=== PATIENT | female | born 1950 | race Caucasian/White ===

== ENCOUNTER 2017-07-03 00:42 | Day surgery (SDC) | payer MEDICARE, OTHER ==
[~2017-07-03 00:42] MED LIST: ACET325UDC PO; AMLO5 PO; CALCA400CH PO; CALCA500CH PO; CEPH500 PO; CREON DR 24,001 EACH PO; CYAN1000 SL; DIPATR PO; DIPH50; DOCU100 PO; DRON400T; ERGO50000 PO; FENT25TP TOP; GABA250SO PO; HYDMOR2 PO; HYOSCYAMINE0.375 M1 PO; Hair, Skin & N1 EACH PO; IRBE150 PO; IRBHYD300 PO; LISHYD2025 PO; LISI20 PO; LOPE2C PO; METO25ER PO; MIRT15 PO; NEBI5 PO; NICO21TP; ONDA4 PO; ONDA8 PO; POTCHL10ER PO; PROM25 PO; SUCR1SU PO; TRIA80TC TOP
== END 2017-07-03 15:53 | disposition home or self-care (01) ==
LOC: ATC 00:42
DX: E86.0 Dehydration (principal); C16.1 Malignant neoplasm of fundus of stomach; I12.9 Hypertensive chronic kidney disease with stage 1 through stage 4 chronic kidney disease, or unspecified chronic kidney disease; N18.9 Chronic kidney disease, unspecified; F32.9 Major depressive disorder, single episode, unspecified; Z87.891 Personal history of nicotine dependence; R21 Rash and other nonspecific skin eruption
CPT/HCPCS: 96360; J1642; J7030

== ENCOUNTER 2017-08-07 12:59 | Day surgery (SDC) | payer MEDICARE, OTHER | END 2017-08-07 15:45 | disposition home or self-care (01) | LOC: ATC 12:59 | DX: E86.0 Dehydration (principal); I12.9 Hypertensive chronic kidney disease with stage 1 through stage 4 chronic kidney disease, or unspecified chronic kidney disease; N18.9 Chronic kidney disease, unspecified; C16.1 Malignant neoplasm of fundus of stomach; G25.81 Restless legs syndrome; K86.89 Other specified diseases of pancreas; C78.4 Secondary malignant neoplasm of small intestine; C78.5 Secondary malignant neoplasm of large intestine and rectum; C78.6 Secondary malignant neoplasm of retroperitoneum and peritoneum; Z90.49 Acquired absence of other specified parts of digestive tract; Z90.3 Acquired absence of stomach [part of]; Z87.891 Personal history of nicotine dependence; Z79.899 Other long term (current) drug therapy; Z90.710 Acquired absence of both cervix and uterus | CPT/HCPCS: 96360; J1642; J7030 ==

== ENCOUNTER 2017-08-17 15:21 | Day surgery (SDC) | payer MEDICARE, OTHER ==
[2017-08-17 17:05] LABS: Albumin, Blood 3.1 g/dL (3.4-5.0); Albumin/Globulin Ratio 0.8 (0.8-1.8); Bilirubin, Total 0.2 mg/dL (0.1-1.0); Bun/Creatinine Ratio 23.4 (12.0-20.0); Calcium, Blood 8.1 mg/dL (8.5-10.1); Creatinine, Blood 2.14 mg/dL (0.40-1.00); Globulin, Blood 3.8 g/dL (2.2-4.0); Potassium, Blood 4.3 mmol/L (3.5-5.5); Total Protein, Blood 6.9 g/dL (6.4-8.2)
== END 2017-08-17 16:47 | disposition home or self-care (01) ==
LOC: ATC 15:21
PROVIDERS: Internal Medicine Medical Oncology
DX: C16.1 Malignant neoplasm of fundus of stomach (principal); I12.9 Hypertensive chronic kidney disease with stage 1 through stage 4 chronic kidney disease, or unspecified chronic kidney disease; N18.9 Chronic kidney disease, unspecified; F32.9 Major depressive disorder, single episode, unspecified; Z87.891 Personal history of nicotine dependence; R21 Rash and other nonspecific skin eruption; E86.0 Dehydration
CPT/HCPCS: 80053; 96360; J1642; J7030

== ENCOUNTER 2017-12-11 16:10 | Emergency (ER) | payer MEDICARE, OTHER ==
[~2017-12-11] VITALS: Ht 157.5 cm; Wt 47.6 kg
[2017-12-11] MEDS ORDERED: Hydrochloroth12.5 MG PO (17:03)
[2017-12-11] MEDS ORDERED: Zestril40 MG (17:03)
[2017-12-11] MEDS ORDERED: DOXA2 PO (17:03)
[2017-12-11 17:06] LABS: BASOPHILS ABSOLUTE AUTO 0.02 K/mm3 (0.00-0.23); BASOPHILS PERCENT AUTO 0 % (0-2); EOSINOPHILS ABSOLUTE AUTO 0.04 K/mm3 (0.00-0.68); EOSINOPHILS PERCENT AUTO 1 % (0-6); Hematocrit 37.3 % (33.0-51.0); Hemoglobin 11.7 g/dL (11.5-16.0); IMMATURE GRAN ABSOLUTE AUTO 0.02 K/mm3 (0.00-0.10); IMMATURE GRAN PERCENT AUTO 0 % (0-1); LYMPHOCYTES ABSOLUTE AUTO 0.35 K/mm3 (0.84-5.20); LYMPHOCYTES PERCENT AUTO 6 % (21-46); MONOCYTES ABSOLUTE AUTO 0.34 K/mm3 (0.16-1.47); MONOCYTES PERCENT AUTO 6 % (4-13); Mean Corpuscular HGB 29.1 pg (26.0-34.0); Mean Corpuscular HGB Conc 31.4 g/dL (31.5-36.5); Mean Corpuscular Volume 93 fL (80-100); Mean Platelet Volume 10.3 fL (9.1-12.4); NEUTROPHILS ABSOLUTE AUTO 5.36 K/mm3 (1.96-9.15); NEUTROPHILS PERCENT AUTO 88 % (41-73); Platelet Count 291 K/mm3 (150-400); RDW Coefficient Variation 14.6 % (11.7-14.2); RDW Standard Deviation 49.2 fL (35.1-46.3); Red Blood Cell Count 4.02 M/mm3 (3.80-5.20); White Blood Cell Count 6.13 K/mm3 (4.00-11.30)
[2017-12-11 17:34] LABS: Alanine Aminotransfer (ALT/SGP 31 U/L (12-78); Albumin, Blood 3.2 g/dL (3.4-5.0); Albumin/Globulin Ratio 0.8 (0.8-1.8); Alk Phos 147 U/L (50-136); Anion Gap 8 mmol/L (6-16); Aspartate Aminotrans (AST/SGOT 24 U/L (12-37); Bilirubin, Total 0.3 mg/dL (0.1-1.0); Blood Urea Nitrogen 33 mg/dL (8-24); CO2, Blood 22 mmol/L (21-32); Calcium, Blood 8.8 mg/dL (8.5-10.1); Chloride, Blood 111 mmol/L (98-108); Creatinine, Blood 2.06 mg/dL (0.40-1.00); Globulin, Blood 3.8 g/dL (2.2-4.0); Glomerular Filtration Rate 25 (60-); Glucose, Blood 117 mg/dL (70-99); Potassium, Blood 4.1 mmol/L (3.5-5.5); Sodium, Blood 141 mmol/L (136-145); Troponin I <0.015 ng/mL (0.000-0.040)
[2017-12-11 19:34] LABS: Bilirubin, Urine Neg (Neg); Blood, Urine 1+ (Neg); Glucose Qualitative, Urine Neg (Neg); Ketones, Urine Neg (Neg); Leukocyte Esterase, Urine 1+ (Neg); Nitrite, Urine Neg (Neg); Protein, Urine 1+ (Neg); Specific Gravity, Urine 1.015 (1.003-1.022); Urobilinogen, Urine NORM (Normal)
[2017-12-11 19:43] LABS: Appearance, Urine Clear (Clear); Color, Urine Yellow (P-Yellow)
[2017-12-11 19:45] LABS: Bacteria Mod /hpf; Squamous Epithelial Cells Mod /hpf (Few)
== END 2017-12-11 20:44 | disposition home or self-care (01) ==
LOC: ER 16:10
PROVIDERS: Emergency Medicine
DX: I12.9 Hypertensive chronic kidney disease with stage 1 through stage 4 chronic kidney disease, or unspecified chronic kidney disease (principal); N18.3 Chronic kidney disease, stage 3 (moderate); R55 Syncope and collapse; Z88.1 Allergy status to other antibiotic agents; Z88.8 Allergy status to other drugs, medicaments and biological substances; Z91.048 Other nonmedicinal substance allergy status; Z79.899 Other long term (current) drug therapy; F32.9 Major depressive disorder, single episode, unspecified; Z87.891 Personal history of nicotine dependence
CPT/HCPCS: 70450; 71046; 80053; 81001; 84484; 85025; 87077; 87086; 87186; 93005; 93010; J7120

== ENCOUNTER 2019-01-26 15:26 | Emergency (ER) | payer MEDICARE, OTHER ==
[~2019-01-26] VITALS: Ht 157.5 cm; Wt 48.1 kg
[~2019-01-26 15:26] MED LIST changes: +DOXA2 PO; +Hydrochloroth12.5 MG PO; +Zestril40 MG
[2019-01-26] MEDS ORDERED: OSCIMIN SR0.375 MG PO (16:05)
[2019-01-26] MEDS ORDERED: AMLO5 PO (16:05)
[2019-01-26] MEDS ORDERED: MIRT15 PO (16:05)
[2019-01-26] MEDS ORDERED: CREON DR 24,001 EACH PO (16:05)
[2019-01-26] MEDS ORDERED: DIPATRL PO (16:06)
[2019-01-26] MEDS ORDERED: METO25ER PO (16:07)
[2019-01-26 16:50] LABS: BASOPHILS ABSOLUTE AUTO 0.04 K/mm3 (0.00-0.23); BASOPHILS PERCENT AUTO 1 % (0-2); EOSINOPHILS ABSOLUTE AUTO 0.36 K/mm3 (0.00-0.68); EOSINOPHILS PERCENT AUTO 7 % (0-6); Hematocrit 36.3 % (33.0-51.0); Hemoglobin 11.6 g/dL (11.5-16.0); IMMATURE GRAN ABSOLUTE AUTO 0.01 K/mm3 (0.00-0.10); IMMATURE GRAN PERCENT AUTO 0 % (0-1); LYMPHOCYTES ABSOLUTE AUTO 0.64 K/mm3 (0.84-5.20); LYMPHOCYTES PERCENT AUTO 12 % (21-46); MONOCYTES ABSOLUTE AUTO 0.55 K/mm3 (0.16-1.47); MONOCYTES PERCENT AUTO 10 % (4-13); Mean Corpuscular HGB 30.4 pg (26.0-34.0); Mean Corpuscular Volume 95 fL (80-100); Mean Platelet Volume 10.4 fL (9.1-12.4); NEUTROPHILS ABSOLUTE AUTO 3.84 K/mm3 (1.96-9.15); NEUTROPHILS PERCENT AUTO 71 % (41-73); Platelet Count 216 K/mm3 (150-400); RDW Coefficient Variation 12.9 % (11.7-14.2); RDW Standard Deviation 45.4 fL (35.1-46.3); Red Blood Cell Count 3.81 M/mm3 (3.80-5.20); White Blood Cell Count 5.44 K/mm3 (4.00-11.30)
[2019-01-26 17:11] LABS: Alanine Aminotransfer (ALT/SGP 30 U/L (12-78); Albumin, Blood 2.9 g/dL (3.4-5.0); Albumin/Globulin Ratio 0.8 (0.8-1.8); Alk Phos 141 U/L (50-136); Anion Gap 6 mmol/L (6-16); Aspartate Aminotrans (AST/SGOT 29 U/L (12-37); Bilirubin, Total 0.4 mg/dL (0.1-1.0); Blood Urea Nitrogen 34 mg/dL (8-24); Bun/Creatinine Ratio 22.5 (12.0-20.0); CO2, Blood 24 mmol/L (21-32); Calcium, Blood 8.5 mg/dL (8.5-10.1); Chloride, Blood 109 mmol/L (98-108); Creatinine, Blood 1.51 mg/dL (0.40-1.00); Globulin, Blood 3.6 g/dL (2.2-4.0); Glomerular Filtration Rate 36 (60-); Glucose, Blood 104 mg/dL (70-99); Potassium, Blood 3.8 mmol/L (3.5-5.5); Sodium, Blood 139 mmol/L (136-145); Total Protein, Blood 6.5 g/dL (6.4-8.2); Troponin I <0.015 ng/mL (0.000-0.040)
[2019-01-26] MEDS ORDERED: Macrobid 100 M100 MG PO (19:23)
[2019-01-26 19:35] LABS: Source, Urine Clean Catch
[2019-01-26 19:38] LABS: Bilirubin, Urine Neg (Neg); Blood, Urine Neg (Neg); Glucose Qualitative, Urine Neg (Neg); Ketones, Urine Neg (Neg); Leukocyte Esterase, Urine 1+ (Neg); Nitrite, Urine Neg (Neg); Protein, Urine 1+ (Neg); Urobilinogen, Urine NORM (Normal)
[2019-01-26 19:59] LABS: Appearance, Urine Clear (Clear); Color, Urine Yellow (P-Yellow); Red Blood Cells, Urine 0-2 /hpf (0-2)
[2019-01-26 20:00] LABS: Bacteria Many /hpf; Granular Casts 0-2 /lpf (0); Mucus Light (0-Heavy); Squamous Epithelial Cells Few /hpf (Few)
[2019-02-08] MEDS ORDERED: DOXA2 PO (14:54)
[2019-02-14] MEDS ORDERED: ACET325 PO (13:07)
[2019-02-14] MEDS ORDERED: CLINDAMYCIN TOP (13:08)
[2019-02-14] MEDS ORDERED: CEFU250T47 PO (13:10)
[2019-02-22] MEDS ORDERED: CEFU250T47 PO (08:32)
[2019-02-22] MEDS ORDERED: ONDA4 PO (08:35)
== END 2019-01-26 19:50 | disposition home or self-care (01) ==
LOC: ER 15:26
PROVIDERS: Physician Assistant
DX: N39.0 Urinary tract infection, site not specified (principal); R55 Syncope and collapse; E86.0 Dehydration; Z88.1 Allergy status to other antibiotic agents; Z88.8 Allergy status to other drugs, medicaments and biological substances; Z79.899 Other long term (current) drug therapy; C16.9 Malignant neoplasm of stomach, unspecified; Z91.048 Other nonmedicinal substance allergy status; Z87.891 Personal history of nicotine dependence
CPT/HCPCS: 36415; 70450; 80053; 81001; 83880; 84484; 85025; 87086; 93005; 93010; 96361; 96374; 99284-25; J1642; J2405; J7030

== ENCOUNTER 2019-02-07 22:20 | Inpatient (IN) | payer MEDICARE, OTHER ==
[~2019-02-07] VITALS: Ht 157.5 cm; Wt 47.4 kg
[~2019-02-07 22:20] MED LIST changes: +DIPATRL PO; +Macrobid 100 M100 MG PO; +OSCIMIN SR0.375 MG PO
[2019-02-07 23:00] LABS: BASOPHILS ABSOLUTE AUTO 0.03 K/mm3 (0.00-0.23); BASOPHILS PERCENT AUTO 1 % (0-2); EOSINOPHILS ABSOLUTE AUTO 0.68 K/mm3 (0.00-0.68); EOSINOPHILS PERCENT AUTO 11 % (0-6); Hemoglobin 11.3 g/dL (11.5-16.0); IMMATURE GRAN ABSOLUTE AUTO 0.02 K/mm3 (0.00-0.10); IMMATURE GRAN PERCENT AUTO 0 % (0-1); LYMPHOCYTES ABSOLUTE AUTO 0.83 K/mm3 (0.84-5.20); LYMPHOCYTES PERCENT AUTO 13 % (21-46); MONOCYTES ABSOLUTE AUTO 0.56 K/mm3 (0.16-1.47); MONOCYTES PERCENT AUTO 9 % (4-13); Mean Corpuscular HGB 29.6 pg (26.0-34.0); Mean Corpuscular HGB Conc 31.4 g/dL (31.5-36.5); Mean Corpuscular Volume 94 fL (80-100); Mean Platelet Volume 9.9 fL (9.1-12.4); NEUTROPHILS ABSOLUTE AUTO 4.32 K/mm3 (1.96-9.15); NEUTROPHILS PERCENT AUTO 67 % (41-73); Platelet Count 270 K/mm3 (150-400); RDW Coefficient Variation 12.4 % (11.7-14.2); RDW Standard Deviation 43.2 fL (35.1-46.3); Red Blood Cell Count 3.82 M/mm3 (3.80-5.20); White Blood Cell Count 6.44 K/mm3 (4.00-11.30)
[2019-02-07 23:19] LABS: Albumin, Blood 2.5 g/dL (3.4-5.0); Albumin/Globulin Ratio 0.7 (0.8-1.8); Bilirubin, Total 0.2 mg/dL (0.1-1.0); Bun/Creatinine Ratio 13.5 (12.0-20.0); Calcium, Blood 8.8 mg/dL (8.5-10.1); Creatinine, Blood 1.78 mg/dL (0.40-1.00); Globulin, Blood 3.6 g/dL (2.2-4.0); Potassium, Blood 4.4 mmol/L (3.5-5.5); Total Protein, Blood 6.1 g/dL (6.4-8.2)
[2019-02-08 01:30] LABS: Magnesium, Blood 1.8 mg/dL (1.6-2.4); Troponin I <0.015 ng/mL (0.000-0.040)
[2019-02-08 03:01] LABS: Source, Urine Clean Catch
[2019-02-08 03:03] LABS: Bilirubin, Urine Neg (Neg); Blood, Urine Neg (Neg); Glucose Qualitative, Urine Neg (Neg); Ketones, Urine Neg (Neg); Leukocyte Esterase, Urine 1+ (Neg); Nitrite, Urine Neg (Neg); Protein, Urine 1+ (Neg); Urobilinogen, Urine NORM (Normal)
[2019-02-08 03:04] LABS: Appearance, Urine Clear (Clear); Color, Urine Yellow (P-Yellow)
[2019-02-08 03:09] LABS: Bacteria Mod /hpf; Hyaline Casts 0-2 /lpf (0-2); Red Blood Cells, Urine 0-2 /hpf (0-2); Squamous Epithelial Cells Not Seen /hpf (Few)
[2019-02-08] MEDS ORDERED: CREON DR 24,001 EACH PO (14:53)
[2019-02-08] MEDS ORDERED: DOXA2 PO ×2 (14:54)
--- NOTE | 2019-02-08 18:23 | NUR ---
PATIENT ADMITTED FOR SYCOPE THIS SHIFT. PATIENT HAS HAD ISSUES WITH SWALLOWING SO EVAL ORDERED. SHE IS WEAK AND REQUIRES 2 ASSIST TO BSC. SHE HAD SMALL (UNDER 30 MLS) OF EMESIS OUT WHEN SHE FIRST ARRIVED TO THE UNIT. HAS TAKEN IN SMALL SCAR OF ICE CHIPS AND ONE ICECREAM CUP FOR DINNER. FAMILY HAS BEEN PRESENT AND ASSISTS WITH CARES NEEDED. PATIENT HAS SLEPT MOST OF THE TIME SINCE SHE ARRIVED. DUE TO HER WEAKNESS AND SYCOPAL EPISODES THIS NURSE ASKED PT TO TRY AGAIN TOMORROW.
--- NOTE | 2019-02-09 04:04 | NUR ---
Shift summary: Pt still feeling very weak when up and needing one person assist. Family at bedside. Pt on telemetry- Pt in NSr with 1st degree block and Bundle branch block per pcu tech.
[2019-02-09 04:59] LABS: BASOPHILS ABSOLUTE AUTO 0.03 K/mm3 (0.00-0.23); BASOPHILS PERCENT AUTO 1 % (0-2); EOSINOPHILS ABSOLUTE AUTO 0.67 K/mm3 (0.00-0.68); EOSINOPHILS PERCENT AUTO 10 % (0-6); Hematocrit 34.9 % (33.0-51.0); Hemoglobin 10.7 g/dL (11.5-16.0); IMMATURE GRAN ABSOLUTE AUTO 0.01 K/mm3 (0.00-0.10); IMMATURE GRAN PERCENT AUTO 0 % (0-1); LYMPHOCYTES ABSOLUTE AUTO 0.82 K/mm3 (0.84-5.20); LYMPHOCYTES PERCENT AUTO 12 % (21-46); MONOCYTES ABSOLUTE AUTO 0.49 K/mm3 (0.16-1.47); MONOCYTES PERCENT AUTO 7 % (4-13); Mean Corpuscular HGB 28.8 pg (26.0-34.0); Mean Corpuscular HGB Conc 30.7 g/dL (31.5-36.5); Mean Corpuscular Volume 94 fL (80-100); Mean Platelet Volume 10.2 fL (9.1-12.4); NEUTROPHILS ABSOLUTE AUTO 4.57 K/mm3 (1.96-9.15); NEUTROPHILS PERCENT AUTO 69 % (41-73); Platelet Count 262 K/mm3 (150-400); RDW Coefficient Variation 12.5 % (11.7-14.2); RDW Standard Deviation 43.5 fL (35.1-46.3); Red Blood Cell Count 3.71 M/mm3 (3.80-5.20); White Blood Cell Count 6.59 K/mm3 (4.00-11.30)
[2019-02-09 05:18] LABS: Albumin, Blood 2.3 g/dL (3.4-5.0); Albumin/Globulin Ratio 0.7 (0.8-1.8); Bilirubin, Total 0.3 mg/dL (0.1-1.0); Bun/Creatinine Ratio 13.2 (12.0-20.0); Calcium, Blood 8.3 mg/dL (8.5-10.1); Creatinine, Blood 1.29 mg/dL (0.40-1.00); Globulin, Blood 3.3 g/dL (2.2-4.0); Potassium, Blood 3.9 mmol/L (3.5-5.5); Total Protein, Blood 5.6 g/dL (6.4-8.2)
--- NOTE | 2019-02-09 17:12 | NUR ---
SUMMARY PT RESTING QUIETLY IN BED, FAMILY IS AT THE BEDSIDE, PT HAS BEEN MED PER EMAR FOR NAUSEA, PT IS PLEASANT AND COOPERATIVE WITH CARE, VERY POOR APPETITE, PT HAS WORKED WITH PT/OT/ST, DIETARY HAS SEEN THE PT WELL, WAITING FOR MRI THIS EVENING, WILL START CPN AND FLUIDS WHEN SHE RETURNS, VSS, NO ACUTE CHANGES, WILL CONT TO MONITOR
[2019-02-10 04:35] LABS: BASOPHILS ABSOLUTE AUTO 0.02 K/mm3 (0.00-0.23); BASOPHILS PERCENT AUTO 0 % (0-2); EOSINOPHILS ABSOLUTE AUTO 0.57 K/mm3 (0.00-0.68); EOSINOPHILS PERCENT AUTO 9 % (0-6); Hematocrit 33.1 % (33.0-51.0); Hemoglobin 10.5 g/dL (11.5-16.0); IMMATURE GRAN ABSOLUTE AUTO 0.01 K/mm3 (0.00-0.10); IMMATURE GRAN PERCENT AUTO 0 % (0-1); LYMPHOCYTES ABSOLUTE AUTO 0.74 K/mm3 (0.84-5.20); LYMPHOCYTES PERCENT AUTO 12 % (21-46); MONOCYTES ABSOLUTE AUTO 0.51 K/mm3 (0.16-1.47); MONOCYTES PERCENT AUTO 8 % (4-13); Mean Corpuscular HGB 29.7 pg (26.0-34.0); Mean Corpuscular HGB Conc 31.7 g/dL (31.5-36.5); Mean Corpuscular Volume 94 fL (80-100); NEUTROPHILS ABSOLUTE AUTO 4.39 K/mm3 (1.96-9.15); NEUTROPHILS PERCENT AUTO 70 % (41-73); Platelet Count 259 K/mm3 (150-400); RDW Coefficient Variation 12.3 % (11.7-14.2); RDW Standard Deviation 42.5 fL (35.1-46.3); Red Blood Cell Count 3.54 M/mm3 (3.80-5.20); White Blood Cell Count 6.24 K/mm3 (4.00-11.30)
[2019-02-10 04:53] LABS: Alanine Aminotransfer (ALT/SGP 12 U/L (12-78); Albumin, Blood 2.3 g/dL (3.4-5.0); Albumin/Globulin Ratio 0.7 (0.8-1.8); Alk Phos 106 U/L (50-136); Anion Gap 6 mmol/L (6-16); Aspartate Aminotrans (AST/SGOT 12 U/L (12-37); Bilirubin, Total 0.2 mg/dL (0.1-1.0); Blood Urea Nitrogen 21 mg/dL (8-24); Bun/Creatinine Ratio 17.6 (12.0-20.0); CO2, Blood 27 mmol/L (21-32); Calcium, Blood 8.3 mg/dL (8.5-10.1); Chloride, Blood 106 mmol/L (98-108); Creatinine, Blood 1.19 mg/dL (0.40-1.00); Globulin, Blood 3.4 g/dL (2.2-4.0); Glomerular Filtration Rate 48 (60-); Glucose, Blood 103 mg/dL (70-99); Magnesium, Blood 1.8 mg/dL (1.6-2.4); Phosphorus, Blood 4.4 mg/dL (2.5-4.9); Potassium, Blood 4.1 mmol/L (3.5-5.5); Sodium, Blood 139 mmol/L (136-145); Total Protein, Blood 5.7 g/dL (6.4-8.2); Triglycerides 186 mg/dL (30-160)
--- NOTE | 2019-02-10 05:50 | NUR ---
Shift summary: Pt has no appetite and gets nauseated every time she gets to go to bathroom. Tpn running at 55. Pt up to br x 4 times during night only requiring minimal assist. Zofran given x 2 for nausea during shift. Blood drawn from mediport this am.
--- NOTE | 2019-02-10 11:46 | NUR ---
Initial Visit: Pt with gastric adenocarcinoma. She is nauseated, painful, anxious. She has TPN running into mediport. She reports 7/10 pain. She does not have an appetite. Reviewed medications with pt and her daughter, Elvis at bedside. Plan made to stagger pain medications and nausea medications for better coverage of symptoms. Tramadol q 6 hours and roxicodone q 4. Pt and daughter are accepting of symptom plan for more comfort. These symptoms are her biggest complaint. Elvis reports that pt hasn't eaten anything, mouth is painful and eating sometimes makes her nausea worse. Spoke with Mejia, nurse. Reviewed plan for treatment of symptoms. Mejia reports that pt has not been reporting pain to her. Will recheck symptoms later in the day.
--- NOTE | 2019-02-10 17:48 | NUR ---
SUMMARY PT CURRENTLY GETTING A CT OF THE ABD, PT HAS SLEPT OFF AND ON T/O THE DAY, PT WORKED WITH PT/OT, FAMILY HAS BEEN IN THE ROOM OFF AND ON T/O THE DAY, PT MED FOR PAIN AND NAUSEA PER EMAR SEVERAL TIMES, PT STILL WITH A POOR APPETITE, VSS, NO ACUTE CHANGES, WILL CONT TO MONITOR
[2019-02-11 04:55] LABS: BASOPHILS ABSOLUTE AUTO 0.02 K/mm3 (0.00-0.23); BASOPHILS PERCENT AUTO 0 % (0-2); EOSINOPHILS ABSOLUTE AUTO 0.51 K/mm3 (0.00-0.68); EOSINOPHILS PERCENT AUTO 7 % (0-6); Hematocrit 33.1 % (33.0-51.0); Hemoglobin 10.7 g/dL (11.5-16.0); IMMATURE GRAN ABSOLUTE AUTO 0.01 K/mm3 (0.00-0.10); IMMATURE GRAN PERCENT AUTO 0 % (0-1); LYMPHOCYTES PERCENT AUTO 10 % (21-46); MONOCYTES ABSOLUTE AUTO 0.46 K/mm3 (0.16-1.47); MONOCYTES PERCENT AUTO 6 % (4-13); Mean Corpuscular HGB 28.8 pg (26.0-34.0); Mean Corpuscular HGB Conc 32.3 g/dL (31.5-36.5); Mean Platelet Volume 10.5 fL (9.1-12.4); NEUTROPHILS ABSOLUTE AUTO 5.56 K/mm3 (1.96-9.15); NEUTROPHILS PERCENT AUTO 77 % (41-73); Platelet Count 271 K/mm3 (150-400); RDW Coefficient Variation 12.1 % (11.7-14.2); RDW Standard Deviation 39.5 fL (35.1-46.3); Red Blood Cell Count 3.71 M/mm3 (3.80-5.20); White Blood Cell Count 7.26 K/mm3 (4.00-11.30)
--- NOTE | 2019-02-11 04:56 | NUR ---
Shift summary. Pt up to bathroom every 1-2 hour during night requiring one person assist. Pt recieving tpn without problems. Pt get nauseated whenever she gets up- zofran given x 2 last pm.
[2019-02-11 05:01] LABS: Mean Corpuscular Volume 89 fL (80-100)
[2019-02-11 05:14] LABS: Albumin, Blood 2.4 g/dL (3.4-5.0); Albumin/Globulin Ratio 0.7 (0.8-1.8); Bilirubin, Total 0.2 mg/dL (0.1-1.0); Bun/Creatinine Ratio 20.8 (12.0-20.0); Calcium, Blood 8.3 mg/dL (8.5-10.1); Creatinine, Blood 1.2 mg/dL (0.40-1.00); Globulin, Blood 3.5 g/dL (2.2-4.0); Magnesium, Blood 1.9 mg/dL (1.6-2.4); Phosphorus, Blood 4.1 mg/dL (2.5-4.9); Potassium, Blood 4.1 mmol/L (3.5-5.5); Total Protein, Blood 5.9 g/dL (6.4-8.2)
--- NOTE | 2019-02-11 08:00 | NUR ---
PT QUITE PLEASANT THIS AM. TALKATIVE, BUT QUIET. DENIES PAIN. SOME NAUSEA, BUT NOT LATELY PER PT. H/R REG, NO MURMER NOTED. PER TELE NSR AT 82 WITH BBB. LUNGS CLEAR T/O. RESP EASY UNLABORED. ON R.A. BT X4 LAST BM YEST PER PT. ABD HAS SCARS. PT STATES DID HAVE COLOSTOMY AT ONE TIME. FEW YEARS AGO. IV ACCESS THROUGH MEDIPORT CPN INFUSING. MEDIPORT R/T CANCER. VOIDS PER BSC OR BATHROOM. 1 ASST. BED IN LOW POSITION, CALL LITE IN REACH, CALLS APPROP
--- NOTE | 2019-02-11 10:24 | NUR ---
PT STATES SOME PAIN LEFT LEG AND KNEE. IS LIGHT BRUISE ON RT KNEE. STATES PAIN LIKELY FROM HOME FALL. MED PER EMAR.
--- NOTE | 2019-02-11 11:29 | NUR ---
PT C/O LEFT LEG PAIN, REFUSED DILAUDID. MAKES HER VOMIT. WORKING WITH REPOSITIONING.
--- NOTE | 2019-02-11 19:41 | NUR ---
PT PLEASANT TODAY, DID REFUSE DILAUDID FOR LEG PAIN. STATES MAKES HER SICK. PLEASANT FAMILY. TPN ORDERS ADJUSTED TODAY. SINCE SUGARS CHANGED, RESTARTED CBG'S. ENCOURAGED HER TO KAREN EAT MEATS FOR DINNER. FAMILY TO ENCOURAGE ALSO. PT SLEPT FOR COUPLE HOURS TODAY. MORE AWAKE THIS WILFREDO. NO OTHER CONCERNS AT THIS TIME. BED IN LOW POSITION, CALL LITE IN REACH, CALLS APPROP
--- NOTE | 2019-02-12 05:45 | NUR ---
SHIFT SUMMARY PT HAD NO ISSUES NOTED. PT SLEPT T/O SHIFT. PT CURRENTLY SLEEPING AND BREATHING EASY. PT FAMILY STAYED NIGHT. CALL LIGHT IN REACH.
[2019-02-12 06:48] LABS: Bun/Creatinine Ratio 21.6 (12.0-20.0); Calcium, Blood 8.1 mg/dL (8.5-10.1); Creatinine, Blood 1.34 mg/dL (0.40-1.00); Magnesium, Blood 2.3 mg/dL (1.6-2.4); Phosphorus, Blood 4.4 mg/dL (2.5-4.9)
--- NOTE | 2019-02-12 16:46 | NUR ---
PATIENT ATE SOME SOUP THIS MORING AND ACCORDING TO FAMILY IS DOING BETTER. SHE WAS SITTING UP IN HER CHAIR FOR HER MEALS. SHE IS PLEASANT AND COOPERATIVE WITH CARES AND IS A SBA TO BSC. CBS HAVE ALL BEEN WNL AND PER ORDER HAVE BEEN DC'D. NO ACUTE CHANGES TO PATIENT THIS SHIFT.
--- NOTE | 2019-02-13 04:59 | NUR ---
SHIFT SUMMARY PT HAS SLEPT T/O SHIFT. NO ISSUES NOTED OR COMPLAINTS. PT DAUGHTER STAYED THE NIGHT WITH PT. PT CURRENTLY SLEEPING AND BREATHING EASY. CALL LIGHT IN REACH.
--- NOTE | 2019-02-13 18:12 | NUR ---
NO ACUTE CHANGES . PATIENT CONTINUES TO HAVE WEAKNESS AND REQUIRES ASSISTANCE WITH TRANFERS. SHE IS ABLE TO SIT UP IN HER CHAIR FOR ONLY BRIEF PERIODS OF TIME. SHE WOULD LIKE TO WORK WITH PT AND OT TO INCREASE STRENGTH BUT IS TOO TIRED WHEN THEY COME BY. SHE IS EATING BUT ONLY SMALL AMOUNTS. NO COMPLAINTS OF PAIN, NV, OR SOB. FAMILY PRESENT THROUGH OUT THE DAY.
[2019-02-14 04:43] LABS: BASOPHILS ABSOLUTE AUTO 0.05 K/mm3 (0.00-0.23); BASOPHILS PERCENT AUTO 1 % (0-2); EOSINOPHILS ABSOLUTE AUTO 1.23 K/mm3 (0.00-0.68); EOSINOPHILS PERCENT AUTO 17 % (0-6); Hematocrit 34.5 % (33.0-51.0); IMMATURE GRAN ABSOLUTE AUTO 0.02 K/mm3 (0.00-0.10); IMMATURE GRAN PERCENT AUTO 0 % (0-1); LYMPHOCYTES ABSOLUTE AUTO 1.18 K/mm3 (0.84-5.20); LYMPHOCYTES PERCENT AUTO 16 % (21-46); MONOCYTES ABSOLUTE AUTO 0.75 K/mm3 (0.16-1.47); MONOCYTES PERCENT AUTO 10 % (4-13); Mean Corpuscular HGB 29.3 pg (26.0-34.0); Mean Corpuscular HGB Conc 31.9 g/dL (31.5-36.5); Mean Platelet Volume 10.2 fL (9.1-12.4); NEUTROPHILS ABSOLUTE AUTO 4.21 K/mm3 (1.96-9.15); NEUTROPHILS PERCENT AUTO 57 % (41-73); Platelet Count 265 K/mm3 (150-400); RDW Coefficient Variation 12.6 % (11.7-14.2); RDW Standard Deviation 42.3 fL (35.1-46.3); Red Blood Cell Count 3.76 M/mm3 (3.80-5.20); White Blood Cell Count 7.44 K/mm3 (4.00-11.30)
[2019-02-14 04:46] LABS: Mean Corpuscular Volume 92 fL (80-100)
[2019-02-14 05:02] LABS: Calcium, Blood 8.5 mg/dL (8.5-10.1); Creatinine, Blood 1.41 mg/dL (0.40-1.00); Potassium, Blood 4.3 mmol/L (3.5-5.5)
--- NOTE | 2019-02-14 10:36 | NUR ---
PT'S FAMILY HAS ASKED THE NURSE TO ASK DR CABRERA FOR A PRESCRIPTION FOR A WHEELCHAIR. THEY ALSO WOULD LIKE TO EXPLORE THE OPTION OF HAVING HOME HEALTH AND IV FLUIDS IN HOME WELL A MEDICATION TO STIMULATE HER APPETITE. NURSE CALLED DR CABRERA AND LEFT MESSAGE AT 0694 ON 02/14/19
[2019-02-14] MEDS ORDERED: ACET325 PO ×2 (13:07)
[2019-02-14] MEDS ORDERED: MIRT15 PO (13:08)
[2019-02-14] MEDS ORDERED: CLINDAMYCIN TOP ×2 (13:08)
[2019-02-14] MEDS ORDERED: CEFU250T47 PO ×2 (13:10)
[2019-02-14] MEDS ORDERED: MEGESTROL400 MG/10 PO (13:11)
[2019-02-14] MEDS ORDERED: Protonix40 M1 PO (13:12)
[2019-02-14] MEDS ORDERED: METO5A PO (16:06)
--- NOTE | 2019-02-14 17:35 | NUR ---
DISCHARGE SUMMARY PT DISCHARGED TO HOME. PT LEFT ROOM VIA WHEELCHAIR WITH MANUFACTURING PROJECT MANAGER ESCORT WITH DAUGHTER PRESENT. PT AND DAUGHTER EDUCATED ON MEDICATIONS, TO FOLLOW UP WITH PCP ON SATURDAY AND TO CORPORATE AUDITOR MEDICATIONS FROM PHARMACY, [facility]. PT AGREES. MEDIPORT DEACCESSED BY CHARGE NURSE MORALES PEREZ RN. ALL QUESTIONS ANSWERED.
== END 2019-02-14 17:38 | disposition home health service (06) | DRG 641 ==
LOC: ER 22:20 → ERHOLD 02-08 04:16 → MEDS 02-08 04:16 → ENPENDDIS 02-14 12:14 → MEDS 02-14 17:38
PROVIDERS: Emergency Medicine; Family Medicine; Internal Medicine; ADMIT Hospitalist
DX: E86.1 Hypovolemia (principal); E44.0 Moderate protein-calorie malnutrition; C16.9 Malignant neoplasm of stomach, unspecified; Z68.1 Body mass index [BMI] 19.9 or less, adult; H70.001 Acute mastoiditis without complications, right ear; B37.0 Candidal stomatitis; I13.10 Hypertensive heart and chronic kidney disease without heart failure, with stage 1 through stage 4 chronic kidney disease, or unspecified chronic kidney disease; Z51.5 Encounter for palliative care; F32.9 Major depressive disorder, single episode, unspecified; K12.1 Other forms of stomatitis; R62.7 Adult failure to thrive; J32.9 Chronic sinusitis, unspecified; Z74.01 Bed confinement status; Z87.891 Personal history of nicotine dependence; Z92.21 Personal history of antineoplastic chemotherapy; R29.6 Repeated falls; L40.9 Psoriasis, unspecified; Z66 Do not resuscitate; R11.2 Nausea with vomiting, unspecified; M71.552 Other bursitis, not elsewhere classified, left hip; N18.3 Chronic kidney disease, stage 3 (moderate)
CPT/HCPCS: 36415; 70553; 71046; 71260; 73502; 74177; 80048; 80053; 81001; 82947; 83605; 83690; 83735; 83880; 84100; 84443; 84478; 84484; 85025; 85379; 87040; 87086; 92526; 92610; 93005; 93010; 93970; 96361; 96372; 96374; 96375; 96376; 97110; 97116; 97162; 97166; 97530; 97535; 99285-25; A9270; A9577; C9113; G0378; J0360; J1170; J1642; J1650; J2405; J2543; J2550; J2765; J3411; J7030; Q9967

== ENCOUNTER 2019-02-16 16:56 | Inpatient (IN) | payer MEDICARE, OTHER ==
[~2019-02-16] VITALS: Ht 162.6 cm; Wt 52.0 kg
[~2019-02-16 16:56] MED LIST changes: +ACET325 PO; +CEFU250T47 PO; +CLINDAMYCIN TOP; +MEGESTROL400 MG/10 PO; +METO5A PO; +Protonix40 M1 PO
[2019-02-16 17:27] LABS: BASOPHILS ABSOLUTE AUTO 0.06 K/mm3 (0.00-0.23); BASOPHILS PERCENT AUTO 1 % (0-2); EOSINOPHILS ABSOLUTE AUTO 0.66 K/mm3 (0.00-0.68); EOSINOPHILS PERCENT AUTO 12 % (0-6); Hematocrit 34.5 % (33.0-51.0); IMMATURE GRAN ABSOLUTE AUTO 0.01 K/mm3 (0.00-0.10); IMMATURE GRAN PERCENT AUTO 0 % (0-1); LYMPHOCYTES ABSOLUTE AUTO 1.17 K/mm3 (0.84-5.20); LYMPHOCYTES PERCENT AUTO 21 % (21-46); MONOCYTES ABSOLUTE AUTO 0.62 K/mm3 (0.16-1.47); MONOCYTES PERCENT AUTO 11 % (4-13); Mean Corpuscular HGB 29.8 pg (26.0-34.0); Mean Corpuscular HGB Conc 31.9 g/dL (31.5-36.5); Mean Corpuscular Volume 94 fL (80-100); Mean Platelet Volume 10.8 fL (9.1-12.4); NEUTROPHILS ABSOLUTE AUTO 3.08 K/mm3 (1.96-9.15); NEUTROPHILS PERCENT AUTO 55 % (41-73); Platelet Count 278 K/mm3 (150-400); RDW Coefficient Variation 12.6 % (11.7-14.2); RDW Standard Deviation 43.8 fL (35.1-46.3); Red Blood Cell Count 3.69 M/mm3 (3.80-5.20)
[2019-02-16 17:46] LABS: Albumin, Blood 2.7 g/dL (3.4-5.0); Albumin/Globulin Ratio 0.7 (0.8-1.8); Bilirubin, Total 0.3 mg/dL (0.1-1.0); Bun/Creatinine Ratio 20.9 (12.0-20.0); Calcium, Blood 9.3 mg/dL (8.5-10.1); Creatinine, Blood 1.63 mg/dL (0.40-1.00); Globulin, Blood 3.7 g/dL (2.2-4.0); Potassium, Blood 4.3 mmol/L (3.5-5.5); Total Protein, Blood 6.4 g/dL (6.4-8.2)
--- NOTE | 2019-02-17 04:38 | NUR ---
SHIFT SUMMARY PT ARRIVED FROM ER IN NO DISTRESS. PT HAD NO COMPLAINTS NOTED. PT WAS GIVEN A SNACK. PT CURRENTLY SLEEPING. DAUGHTER IS WITH PT. CALL LIGHT IN REACH.
[2019-02-17 05:02] LABS: BASOPHILS ABSOLUTE AUTO 0.05 K/mm3 (0.00-0.23); BASOPHILS PERCENT AUTO 1 % (0-2); EOSINOPHILS ABSOLUTE AUTO 0.71 K/mm3 (0.00-0.68); EOSINOPHILS PERCENT AUTO 14 % (0-6); Hematocrit 32.3 % (33.0-51.0); Hemoglobin 10.2 g/dL (11.5-16.0); IMMATURE GRAN ABSOLUTE AUTO 0.01 K/mm3 (0.00-0.10); IMMATURE GRAN PERCENT AUTO 0 % (0-1); LYMPHOCYTES PERCENT AUTO 23 % (21-46); MONOCYTES PERCENT AUTO 10 % (4-13); Mean Corpuscular HGB 29.1 pg (26.0-34.0); Mean Corpuscular HGB Conc 31.6 g/dL (31.5-36.5); Mean Corpuscular Volume 92 fL (80-100); Mean Platelet Volume 10.7 fL (9.1-12.4); NEUTROPHILS ABSOLUTE AUTO 2.69 K/mm3 (1.96-9.15); NEUTROPHILS PERCENT AUTO 52 % (41-73); Platelet Count 250 K/mm3 (150-400); RDW Coefficient Variation 12.9 % (11.7-14.2); RDW Standard Deviation 43.2 fL (35.1-46.3); White Blood Cell Count 5.16 K/mm3 (4.00-11.30)
[2019-02-17 05:13] LABS: Bun/Creatinine Ratio 21.4 (12.0-20.0); Calcium, Blood 8.5 mg/dL (8.5-10.1); Creatinine, Blood 1.4 mg/dL (0.40-1.00); Magnesium, Blood 2.4 mg/dL (1.6-2.4); Potassium, Blood 4.2 mmol/L (3.5-5.5)
--- NOTE | 2019-02-17 19:10 | NUR ---
PT. SLEEPING AT THIS TIME, HAS EATEN BETTER TODAY THAN SHE DOES AT HOME PER DAUGHTER. HAD GRILLED CHEESE AND TOMATO SOUP WHICH DEHILARIOIAN ORDERED FOR HER. NO NOTEABLE CHANGES THIS SHIFT.
[2019-02-18 04:45] LABS: BASOPHILS ABSOLUTE AUTO 0.03 K/mm3 (0.00-0.23); BASOPHILS PERCENT AUTO 1 % (0-2); EOSINOPHILS ABSOLUTE AUTO 0.79 K/mm3 (0.00-0.68); EOSINOPHILS PERCENT AUTO 14 % (0-6); Hemoglobin 9.3 g/dL (11.5-16.0); IMMATURE GRAN ABSOLUTE AUTO 0.02 K/mm3 (0.00-0.10); IMMATURE GRAN PERCENT AUTO 0 % (0-1); LYMPHOCYTES PERCENT AUTO 17 % (21-46); MONOCYTES ABSOLUTE AUTO 0.43 K/mm3 (0.16-1.47); MONOCYTES PERCENT AUTO 7 % (4-13); Mean Corpuscular HGB 29.4 pg (26.0-34.0); Mean Platelet Volume 10.8 fL (9.1-12.4); NEUTROPHILS ABSOLUTE AUTO 3.51 K/mm3 (1.96-9.15); NEUTROPHILS PERCENT AUTO 61 % (41-73); Platelet Count 256 K/mm3 (150-400); RDW Coefficient Variation 12.6 % (11.7-14.2); Red Blood Cell Count 3.16 M/mm3 (3.80-5.20); White Blood Cell Count 5.78 K/mm3 (4.00-11.30)
[2019-02-18 04:53] LABS: Mean Corpuscular Volume 95 fL (80-100)
[2019-02-18 05:07] LABS: Albumin, Blood 2.4 g/dL (3.4-5.0); Albumin/Globulin Ratio 0.7 (0.8-1.8); Bilirubin, Total 0.1 mg/dL (0.1-1.0); Bun/Creatinine Ratio 22.4 (12.0-20.0); Calcium, Blood 8.2 mg/dL (8.5-10.1); Creatinine, Blood 1.16 mg/dL (0.40-1.00); Globulin, Blood 3.3 g/dL (2.2-4.0); Potassium, Blood 4.1 mmol/L (3.5-5.5); Total Protein, Blood 5.7 g/dL (6.4-8.2)
--- NOTE | 2019-02-18 07:28 | NUR ---
report given to returning day nurse, [facility] accessed based on 's orders, fluids infuseing with no s/sx of infection, room air, no s/sx of major medical changes
--- NOTE | 2019-02-18 20:23 | NUR ---
PT TO HAVE SLEEP DEPRIVED EEG AT 0300. PT AWARE OF NEEDING TO STAY AWAKE. WILL MONITOR PT CLOSELY TO ENSURE PT STAYS AWAKE.
--- NOTE | 2019-02-18 22:24 | NUR ---
PT DAUGHT IN RM TO ASSIST PT WITH STAYING AWAKE
--- NOTE | 2019-02-19 03:10 | NUR ---
YELLOW PAGES SPACE SALESPERSON AT BEDSIDE.
[2019-02-19 05:50] LABS: BASOPHILS ABSOLUTE AUTO 0.02 K/mm3 (0.00-0.23); BASOPHILS PERCENT AUTO 0 % (0-2); EOSINOPHILS ABSOLUTE AUTO 0.63 K/mm3 (0.00-0.68); EOSINOPHILS PERCENT AUTO 12 % (0-6); Hematocrit 32.3 % (33.0-51.0); Hemoglobin 10.2 g/dL (11.5-16.0); IMMATURE GRAN ABSOLUTE AUTO 0.01 K/mm3 (0.00-0.10); IMMATURE GRAN PERCENT AUTO 0 % (0-1); LYMPHOCYTES ABSOLUTE AUTO 0.95 K/mm3 (0.84-5.20); LYMPHOCYTES PERCENT AUTO 18 % (21-46); MONOCYTES ABSOLUTE AUTO 0.43 K/mm3 (0.16-1.47); MONOCYTES PERCENT AUTO 8 % (4-13); Mean Corpuscular HGB 29.6 pg (26.0-34.0); Mean Corpuscular HGB Conc 31.6 g/dL (31.5-36.5); Mean Corpuscular Volume 94 fL (80-100); Mean Platelet Volume 10.4 fL (9.1-12.4); NEUTROPHILS ABSOLUTE AUTO 3.33 K/mm3 (1.96-9.15); NEUTROPHILS PERCENT AUTO 62 % (41-73); Platelet Count 236 K/mm3 (150-400); RDW Coefficient Variation 13.1 % (11.7-14.2); RDW Standard Deviation 44.7 fL (35.1-46.3); Red Blood Cell Count 3.45 M/mm3 (3.80-5.20); White Blood Cell Count 5.37 K/mm3 (4.00-11.30)
[2019-02-19 06:10] LABS: Albumin, Blood 2.5 g/dL (3.4-5.0); Albumin/Globulin Ratio 0.7 (0.8-1.8); Bilirubin, Total 0.1 mg/dL (0.1-1.0); Bun/Creatinine Ratio 18.8 (12.0-20.0); Creatinine, Blood 1.12 mg/dL (0.40-1.00); Globulin, Blood 3.4 g/dL (2.2-4.0); Total Protein, Blood 5.9 g/dL (6.4-8.2)
--- NOTE | 2019-02-19 06:29 | NUR ---
SHIFT SUMMARY: PT HAD SLEEP DEPRIVED EEG THIS MORNING AT 0300. MEDIPORT TO R CHEST WALL ACCESSED AND RUNNING NS c 20 MEQ KCL @ 75 ML/HR. LABS DRAWN THIS AM, CAP CHANGED. PT IS A&O X 4, SBA TO BSC. CREON BEFORE MEALS. PT DENIES ANY PAIN OR DISCOMFORT. NO OTHER CHANGES TO REPORT, WILL CONT TO MONITOR AND PROVIDE CARE UNTIL PRESUMED BY ONCOMING RN.
--- NOTE | 2019-02-19 16:30 | NUR ---
SUMMARY PT IS A/O X4, PLEASANT/COOOPERATIVE AFFECT. UP SBA INITIALLY TODAY HOWEVER PHYTHER IN FOR EVAL STATE IND IN ROOM, TO BSC. PT ENCOURAGED TO CALL FOR ASSIST R/T CONTINUING IVF'S @ THIS TIME. SHE IS SOMEWHAT FRAIL, THIN. STATE FATIGUE. STATE HX STOMACH CA, RECENT CHEMO HOWEVER ON HOLD @ THIS TIME. SHE STATE NO DIZZINESS OR LIGHTHEADEDNESS TODAY. NO SEIZURE EVENTS T/O DAY. HER EEG'S HAVE BEEN NORMAL. VSS.
[2019-02-20 04:34] LABS: BASOPHILS ABSOLUTE AUTO 0.03 K/mm3 (0.00-0.23); BASOPHILS PERCENT AUTO 1 % (0-2); EOSINOPHILS PERCENT AUTO 7 % (0-6); Hematocrit 29.7 % (33.0-51.0); Hemoglobin 9.2 g/dL (11.5-16.0); IMMATURE GRAN ABSOLUTE AUTO 0.02 K/mm3 (0.00-0.10); IMMATURE GRAN PERCENT AUTO 0 % (0-1); LYMPHOCYTES ABSOLUTE AUTO 1.07 K/mm3 (0.84-5.20); LYMPHOCYTES PERCENT AUTO 19 % (21-46); MONOCYTES ABSOLUTE AUTO 0.54 K/mm3 (0.16-1.47); MONOCYTES PERCENT AUTO 9 % (4-13); Mean Corpuscular HGB 28.8 pg (26.0-34.0); Mean Corpuscular Volume 93 fL (80-100); Mean Platelet Volume 10.7 fL (9.1-12.4); NEUTROPHILS ABSOLUTE AUTO 3.72 K/mm3 (1.96-9.15); NEUTROPHILS PERCENT AUTO 65 % (41-73); Platelet Count 254 K/mm3 (150-400); RDW Standard Deviation 44.6 fL (35.1-46.3); Red Blood Cell Count 3.19 M/mm3 (3.80-5.20); White Blood Cell Count 5.78 K/mm3 (4.00-11.30)
[2019-02-20 04:48] LABS: Albumin, Blood 2.6 g/dL (3.4-5.0); Albumin/Globulin Ratio 0.8 (0.8-1.8); Bilirubin, Total 0.1 mg/dL (0.1-1.0); Creatinine, Blood 1.16 mg/dL (0.40-1.00); Globulin, Blood 3.3 g/dL (2.2-4.0); Potassium, Blood 4.4 mmol/L (3.5-5.5); Total Protein, Blood 5.9 g/dL (6.4-8.2)
--- NOTE | 2019-02-20 06:14 | NUR ---
SHIFT SUMMARY: NO ACUTE CHNAGES TONIGHT. PT DOES NOT HAVE ANY SYNCOPIAL OR SEIZURE EVENTS, DENIES DIZZINESS. EEGs HAVE RETURNED BACK NEG. MEDIPORT TO R CHEST WALL ACCESSED AND STILL IN USE, RUNNING NS 20 MEQ KCL @ 75 ML/HR. CREON ADMINISTERED PRIOR TO SNACKS AND MEALS. PT HAS FAMILY AT BEDSIDE MOST OF NIGHT. NO OTHER CHANGES TO REPORT. WILL CONT TO MONITOR AND PROVIDE CARE UNTIL PRESUMED BY ONCOMING RN.
--- NOTE | 2019-02-20 15:31 | NUR ---
SUMMARY PT IS A/O X4, PLEASANT/COOPERATIVE. UP IND IN ROOM, AMBULATE IND WITH PHYTHER IN [place] TODAY, GAIT STEADY, HOWEVER THIN/FRAIL. APPETITE GOOD, FAMILY HAS BROUGHT IN MULT SNACKS, SCHEDULED & PRN CREON W MEALS/SNACKS. SHE STATE NO DIZZINESS, NO LIGHTHEADEDNESS. STATE NO PAIN/DISCOMFORT. SHE HAS HAD NO SEIZURE EVENTS T/O DAY. DR CUNNINGHAM STOP IVF'S THIS AM. ORTHO VS UNREMARKABLE. PT ENCOURAGED TO HYDRATE.
--- NOTE | 2019-02-21 01:16 | NUR ---
ORTHOSTATIC VITAL SIGNS LAYIN/76, HR 79, 98% ON RA, RR 20, TEMP 98.2 SITTIN/109, HR 100, 99% ON RA, RR 16, TEMP 98.9 STANDIN/103, HR 79, 97% ON RA, RR 16, TEMP 98.3 PT DENIES ANY DIZZINESS, WEAKNESS, OR LIGHTHEADEDNESS
[2019-02-21 04:49] LABS: BASOPHILS ABSOLUTE AUTO 0.02 K/mm3 (0.00-0.23); BASOPHILS PERCENT AUTO 0 % (0-2); EOSINOPHILS ABSOLUTE AUTO 0.32 K/mm3 (0.00-0.68); EOSINOPHILS PERCENT AUTO 5 % (0-6); Hemoglobin 9.5 g/dL (11.5-16.0); IMMATURE GRAN ABSOLUTE AUTO 0.01 K/mm3 (0.00-0.10); IMMATURE GRAN PERCENT AUTO 0 % (0-1); LYMPHOCYTES ABSOLUTE AUTO 1.06 K/mm3 (0.84-5.20); LYMPHOCYTES PERCENT AUTO 18 % (21-46); MONOCYTES ABSOLUTE AUTO 0.46 K/mm3 (0.16-1.47); MONOCYTES PERCENT AUTO 8 % (4-13); Mean Corpuscular HGB 29.8 pg (26.0-34.0); Mean Corpuscular HGB Conc 31.7 g/dL (31.5-36.5); Mean Corpuscular Volume 94 fL (80-100); NEUTROPHILS ABSOLUTE AUTO 4.08 K/mm3 (1.96-9.15); NEUTROPHILS PERCENT AUTO 69 % (41-73); Platelet Count 261 K/mm3 (150-400); RDW Standard Deviation 44.7 fL (35.1-46.3); Red Blood Cell Count 3.19 M/mm3 (3.80-5.20); White Blood Cell Count 5.95 K/mm3 (4.00-11.30)
[2019-02-21 05:10] LABS: Magnesium, Blood 2.1 mg/dL (1.6-2.4)
[2019-02-21 05:11] LABS: Albumin, Blood 2.6 g/dL (3.4-5.0); Albumin/Globulin Ratio 0.8 (0.8-1.8); Bilirubin, Total 0.2 mg/dL (0.1-1.0); Bun/Creatinine Ratio 22.9 (12.0-20.0); Calcium, Blood 8.1 mg/dL (8.5-10.1); Creatinine, Blood 1.09 mg/dL (0.40-1.00); Globulin, Blood 3.4 g/dL (2.2-4.0); Potassium, Blood 4.1 mmol/L (3.5-5.5)
--- NOTE | 2019-02-21 06:20 | NUR ---
SHIFT SUMMARY NO SEIZURE OR SYNCOPIAL EVENTS TONIGHT. PT DENIES ANY DIZZINESS. ORTHOSTATIC VITALS COMPLETE -- SEE PRIOR NOTE. A&O X 4, INDEPENDENT IN RM, FAMILY AT BEDSIDE MOST OF TONIGHT. CREON BEFORE MEALS AND SNACKS. NO OTHER CHANGES TO REPORT, WILL CONT TO MONITOR AND PROVIDE CARE UNTIL PRESUMED BY ONCOMING RN.
--- NOTE | 2019-02-21 07:56 | NUR ---
ORTHOSTATIC BLOOD PRESSURES REPORTED TO DR. CUNNINGHAM. STRICT I'S AND O'S INITIATED. PT DENIES ANY DIZZINESS, SOB OR CP.
--- NOTE | 2019-02-21 18:14 | NUR ---
SHIFT SUMMARY OX4; INDEPENDENT. GOOD APPETITE TODAY. DISCHARGED FROM PHYSICAL THERAPY AFTER AMBULATING IN HALLWAY WELL AND WITHOUT C/O. DENIES DIZZINESS. HTN NOTED THIS A.M. POSSIBLE DC TOMORROW.
--- NOTE | 2019-02-22 06:32 | NUR ---
SHIFT SUMMARY NO ACUTE CHANGES TONIGHT. PT IS A&O X 4, INDEPENDENT IN . NO SEIZURE OR SYNCOPIAL EVENTS. DENIES DIZZINESS OR LIGHTHEADEDNESS. PT ASKS SEVERAL TIMES WHEN SHE WILL BE ABLE TO GO HOME. FAMILY AT BEDSIDE MOST OF NIGHT. NO OTHER CHANGES, WILL CONT TO MONITOR AND PROVIDE CARE UNTIL PRESUMED BY ONCOMING RN.
[2019-02-22] MEDS ORDERED: CEFU250T47 PO ×2 (08:32)
[2019-02-22] MEDS ORDERED: ONDA4 PO ×2 (08:35)
--- NOTE | 2019-02-22 11:38 | NUR ---
SHIFT SUMMARY PT RESTING QUIETLY SUPINE AT START OF SHIFT. FAMILY IN AND OUT OF RM. [facility]. ADMITTED FOR SYNCOPE, POSSIBLE SEIZURE EPISODE. NO SYNCOPAL EPISODES OR SEIZURES DURING ADMISSION. PT WITH CURRENT HX OF GASTRIC CA, SEEING DR HILL, PANCREATIC INSUFFICIENCY, LUPUS, AND CKD. [facility]; DEACCESSED AT DISCHARGE. SKIN VERY THIN AND FRAGILE WITH SCATTERED SCABS R/T PSORIASIS. NO C/O PAIN, NAUSEA, OR DIZZINESS. DR CUNNINGHAM IN EARLY TO SEE PT. DISCHARGE ORDERS GIVEN. PT CALLED FAMILY FOR RIDE WHEN READY. ASSISTED OUT TO CAR BY LUBRICATION SERVICER, VIA W/C. FAMILY AT PT'S SIDE, PROVIDING TX @ 10:15.
== END 2019-02-22 10:17 | disposition home health service (06) | DRG 640 ==
LOC: ER 16:56 → MEDS 20:51 → ER 20:51 → MEDS 21:00 → EDBEDREQ 22:31 → EDBEDREQTM 22:31 → MEDS 23:26 → ENPENDDIS 02-22 08:30 → MEDS 02-22 10:17
PROVIDERS: Emergency Medicine; Family Medicine; Internal Medicine Gastroenterology; Nurse Practitioner Acute Care; ADMIT Internal Medicine
DX: E86.0 Dehydration (principal); E43 Unspecified severe protein-calorie malnutrition; C16.2 Malignant neoplasm of body of stomach; N18.4 Chronic kidney disease, stage 4 (severe); H70.009 Acute mastoiditis without complications, unspecified ear; Z68.1 Body mass index [BMI] 19.9 or less, adult; I95.9 Hypotension, unspecified; F32.9 Major depressive disorder, single episode, unspecified; I12.9 Hypertensive chronic kidney disease with stage 1 through stage 4 chronic kidney disease, or unspecified chronic kidney disease; R62.7 Adult failure to thrive; Z91.81 History of falling; M25.511 Pain in right shoulder; W19.XXXA Unspecified fall, initial encounter; Z74.01 Bed confinement status; Z90.3 Acquired absence of stomach [part of]; Z66 Do not resuscitate; K86.81 Exocrine pancreatic insufficiency; Z87.891 Personal history of nicotine dependence; R56.9 Unspecified convulsions; K21.9 Gastro-esophageal reflux disease without esophagitis; D63.8 Anemia in other chronic diseases classified elsewhere
CPT/HCPCS: 36415; 73030; 80048; 80053; 83735; 84484; 85025; 93005; 93010; 95819; 96361; 96365; 96372; 96372-59; 96375; 97110; 97116; 97162; 97166; 97530; 97535; 99285-25; A9270; G0378; J1642; J1650; J2270; J3010; J3480; J7030

== ENCOUNTER → 2019-03-04 | Outpatient (CLI) | payer MEDICARE, OTHER | END | disposition home or self-care (01) | LOC: PLD 08:01 → LAB SHORT 08:01 | DX: L98.9 Disorder of the skin and subcutaneous tissue, unspecified (principal) | CPT/HCPCS: 88305 ==

== ENCOUNTER 2019-07-14 17:30 | Inpatient (IN) | payer MEDICARE, OTHER ==
[~2019-07-14] VITALS: Ht 154.9 cm; Wt 45.0 kg
[2019-07-14 18:24] LABS: BASOPHILS ABSOLUTE AUTO 0.02 K/mm3 (0.00-0.23); BASOPHILS PERCENT AUTO 0 % (0-2); EOSINOPHILS ABSOLUTE AUTO 0.01 K/mm3 (0.00-0.68); EOSINOPHILS PERCENT AUTO 0 % (0-6); Hematocrit 36.6 % (33.0-51.0); Hemoglobin 11.3 g/dL (11.5-16.0); IMMATURE GRAN ABSOLUTE AUTO 0.05 K/mm3 (0.00-0.10); IMMATURE GRAN PERCENT AUTO 1 % (0-1); LYMPHOCYTES PERCENT AUTO 10 % (21-46); MONOCYTES ABSOLUTE AUTO 0.39 K/mm3 (0.16-1.47); MONOCYTES PERCENT AUTO 4 % (4-13); Mean Corpuscular HGB 28.5 pg (26.0-34.0); Mean Corpuscular HGB Conc 30.9 g/dL (31.5-36.5); Mean Corpuscular Volume 92 fL (80-100); Mean Platelet Volume 10.5 fL (9.1-12.4); NEUTROPHILS ABSOLUTE AUTO 7.95 K/mm3 (1.96-9.15); NEUTROPHILS PERCENT AUTO 85 % (41-73); Platelet Count 366 K/mm3 (150-400); RDW Coefficient Variation 13.8 % (11.7-14.2); RDW Standard Deviation 47.3 fL (35.1-46.3); Red Blood Cell Count 3.96 M/mm3 (3.80-5.20); White Blood Cell Count 9.32 K/mm3 (4.00-11.30)
[2019-07-14 18:39] LABS: International Normalized Ratio 0.91; Prothrombin Time Results 9.7 Sec (9.7-11.5)
[2019-07-14 19:11] LABS: Albumin, Blood 2.7 g/dL (3.4-5.0); Albumin/Globulin Ratio 0.8 (0.8-1.8); Bilirubin, Total 0.1 mg/dL (0.1-1.0); Bun/Creatinine Ratio 21.4 (12.0-20.0); Calcium, Blood 7.9 mg/dL (8.5-10.1); Creatinine, Blood 1.03 mg/dL (0.40-1.00); Globulin, Blood 3.4 g/dL (2.2-4.0); Potassium, Blood 3.5 mmol/L (3.5-5.5); Total Protein, Blood 6.1 g/dL (6.4-8.2)
[2019-07-14 20:47] LABS: U Amphetamine Screen Not Detected; U Barbituate Screen Not Detected; U Benzodiazapine Screen Not Detected; U Buprenorphine Screen Not Detected; U Cannabinoids Screen Not Detected; U Cocaine Screen Not Detected; U Methadone Screen Not Detected; U Methamphetamine Screen Not Detected; U Opiates Screen Not Detected; U Oxycodone Screen Not Detected; U Phencyclidine Screen Not Detected; U Propoxyphene Screen Not Detected
[2019-07-14 20:52] LABS: Influenza A Negative (NEGATIVE); Influenza B Negative (NEGATIVE)
[2019-07-14 21:11] LABS: Source, Urine Catheter
[2019-07-14 21:14] LABS: Bilirubin, Urine Neg (Neg); Blood, Urine Neg (Neg); Glucose Qualitative, Urine Neg (Neg); Ketones, Urine Neg (Neg); Leukocyte Esterase, Urine Neg (Neg); Nitrite, Urine Neg (Neg); Protein, Urine Neg (Neg); Specific Gravity, Urine 1.005 (1.003-1.022); Urobilinogen, Urine NORM (Normal); pH, Urine 6.5 (5.0-8.0)
[2019-07-14 21:15] LABS: Appearance, Urine Clear (Clear); Color, Urine Yellow (P-Yellow)
--- NOTE | 2019-07-15 00:55 | NUR ---
MD notified of increase in lactic acid from 2.2 to 2.7. Given the patients hx of ongoing residential chemo and her having no signs/symptoms of infection, MD elected to cautiously observe at this time prior to initiating sepsis protocol. Will continue close monitoring.
--- NOTE | 2019-07-15 04:22 | NUR ---
LATE NOTE from 2244 upon arriving on the floor at 2244, patient was somnolent but oriented, had only gross mvmt in her right upper arm and her right hand was flaccid on neuro assessment. right leg was weak, however she was able to plantar and dorsiflex and wiggle her toes on command. unable to independently lift leg on command and leg and arm would drop if picked up and let go of. Post admission neuro checks can be found in flow sheets.
--- NOTE | 2019-07-15 04:40 | NUR ---
NEURO CHECKS FOR 99 AND 329 0100: right arm is slightly more coordinated and hand has slightly improved. still unable to grasp or use fingers. right leg unchanged. speech clearing and facial droop almost unnoticeable. Drift still noted in right leg as well as right arm. was able to swallow NOW meds one at a time without difficulty. 033 both right upper and lower extremity continue to improve. right arm still gross movement upper arm with drop from 12" up off bed. Fingers able to actually organizational psychologist gently on command. Right leg much stronger, and pt is able to bear about 50% weight when assisted to stand with two staff. speech still slow and deliberate, but much more clear this AM.
[2019-07-15 06:10] LABS: BASOPHILS ABSOLUTE AUTO 0.02 K/mm3 (0.00-0.23); BASOPHILS PERCENT AUTO 0 % (0-2); EOSINOPHILS PERCENT AUTO 0 % (0-6); Hematocrit 34.3 % (33.0-51.0); Hemoglobin 10.8 g/dL (11.5-16.0); IMMATURE GRAN ABSOLUTE AUTO 0.05 K/mm3 (0.00-0.10); IMMATURE GRAN PERCENT AUTO 1 % (0-1); LYMPHOCYTES ABSOLUTE AUTO 1.33 K/mm3 (0.84-5.20); LYMPHOCYTES PERCENT AUTO 15 % (21-46); MONOCYTES ABSOLUTE AUTO 0.37 K/mm3 (0.16-1.47); MONOCYTES PERCENT AUTO 4 % (4-13); Mean Corpuscular HGB 28.7 pg (26.0-34.0); Mean Corpuscular HGB Conc 31.5 g/dL (31.5-36.5); Mean Corpuscular Volume 91 fL (80-100); Mean Platelet Volume 10.7 fL (9.1-12.4); NEUTROPHILS ABSOLUTE AUTO 6.88 K/mm3 (1.96-9.15); NEUTROPHILS PERCENT AUTO 80 % (41-73); Platelet Count 328 K/mm3 (150-400); RDW Coefficient Variation 13.9 % (11.7-14.2); Red Blood Cell Count 3.76 M/mm3 (3.80-5.20); White Blood Cell Count 8.65 K/mm3 (4.00-11.30)
[2019-07-15 06:36] LABS: Anion Gap 7 mmol/L (6-16); Blood Urea Nitrogen 18 mg/dL (8-24); Bun/Creatinine Ratio 20.7 (12.0-20.0); CHOL/HDL RATIO 4.5; CO2, Blood 22 mmol/L (21-32); Calcium, Blood 7.9 mg/dL (8.5-10.1); Chloride, Blood 114 mmol/L (98-108); Cholesterol 154 mg/dL (50-200); Creatinine, Blood 0.87 mg/dL (0.40-1.00); Glomerular Filtration Rate >60 (60-); Glucose, Blood 92 mg/dL (70-99); HDL Cholesterol 34 mg/dL (>39); LDL/HDL RATIO 2.8; Low Density Lipoprotein Chol 94 mg/dL (0-110); Potassium, Blood 3.9 mmol/L (3.5-5.5); Sodium, Blood 143 mmol/L (136-145); Triglycerides 130 mg/dL (30-160); Very Low Density Lipoprot Chol 26 mg/dL (6-32)
--- NOTE | 2019-07-15 07:32 | NUR ---
IN H&P IT WAS STATED THAT PT WISHES TO BE "FULL CODE" BUT HAS A DNR ORDER. NURSE SPOKE WITH PATIENT ABOUT HER WISHES AND SHE STATES THAT SHE "DOES NOT WANT ANY HEROIC MEASURES" AND CONFIRMS THAT SHE WANTS TO BE A DNR.
--- NOTE | 2019-07-15 11:26 | NUR ---
DR GAONA NOTIFIED OF BP OF . NO NEW ORDERS AT THIS TIME
--- NOTE | 2019-07-15 17:59 | NUR ---
Inital Spiritual Care note: Mrs. Hudson appears weak/tired. She clearly was not up for lengthy conversation. She feels well supported by family and has a strong roselia in a loving God. Prayer provided at bedside and pt fell back to sleep. I will remain available.
--- NOTE | 2019-07-15 18:07 | NUR ---
SHIFT SUMMARY PT AXO, PLEASANT AND COOPERATIVE WITH CARE. PT SLIGHTLY SLOW TO RESPOND AND CONTINUES TO BE WEAK ON RUE AND RLE. IV PATENT AND INFUSING ADL PER EMAR. VSS. NO ACUTE CHANGES THIS SHIFT. SWALLOW EVAL COMPLETED, SEE NOTE. BED IN LOW POSITION, CALL LIGHT WITHIN REACH. PHYSICAL THERAPY AND OCCUPATIONAL THERAPY EVALUATED, SEE NOTE.
--- NOTE | 2019-07-16 08:03 | NUR ---
SHIFT SUMMARY: 69 Y/O SLENDER FEMALE RESTED COMFORTABLY ALL SHIFT; ALERT AND ORIENTED X 2, ABLE TO FOLLOW VERY SIMPLE VERBAL COMMANDS; PT HAS RIGHT SIDED WEAKNESS WITH RIGHT HAND HAVING GROSS MOTOR MOVEMENT ONLY (UNABLE TO FEED SELF); HEPARIN INFUSING ORDERED PER PHARMACY; PT ATTEMPTED TO CLIMB OOB ONCE LAST NIGHT AND SET OFF BED ALARM WITH SKIN TEAR NOTED TO RFA (SITE CLEANSED UP AND NON ADHERENT TELFA DRESSING, 4 X 4 AND COBAN WRAP APPLIED)--PT TOLERATED PROCEDURE WELL; DENIES PAIN OR NAUSEA; PT GRANDSON AND FAMILY AT SIDE BEGINNING OF SHIFT AND VERY SUPPORTIVE; TELEMETRY REFLECTS NSR WITH OCCASIONAL PVC AND HEART RATE 68 PER LINDSEY--SALES MARKET LEADER; BED ALARM MAINTAINED, BED LOW POSITION WITH CALL LIGHT AT SIDE.
--- NOTE | 2019-07-16 11:38 | NUR ---
Pt. is lying in bed and her nurse in the room attending to her needs, pt. reports doing finen offered prayers.
[2019-07-16] MEDS ORDERED: DEXA4 PO (16:26)
--- NOTE | 2019-07-16 17:16 | NUR ---
NO ACUTE CHANGES. PATIENT HAS BEEN GIVEN FOOD AND EATEN SOME OF IT THROUGH OUT THE SHIFT. FAMILY PRESENT AND PATIENT HAS SLEPT WHEN THEY GO. SHE IS ALERT AND ORIENTED AND COOPERATIVE WITH STAFF AND ALL CARES.
--- NOTE | 2019-07-16 22:46 | NUR ---
2000 PTS RFA DRESSING REMOVED AND REDRESSED, SKIN TEAR INTACT--PHOTO TAKEN WITH CONSENT OBTAINED, DAUGHTER AT SIDE AND SUPPORTIVE; ALERT AND ORIENTED X 4; RIGHT ARM HAS GROSS MOTOR MOVEMENT ONLY (PT IS RIGHT HANDED); ALERT AND ORIENTED X 2, ABLE TO FOLLOW SIMPLE VERBAL COMMANDS; BED ALARM APPLIED.
--- NOTE | 2019-07-17 04:22 | NUR ---
SHIFT SUMMARY: 69 Y/O FEMALE RESTED COMFORTABLY ALL SHIFT; PT ALERT AND ORIENTED X 2; PT HAS RIGHT SIDED WEAKNESS (RIGHT HAND HAS GROSS MOTOR MOVEMENT WITH INABILITY TO HOLD GLASS OF WATER OR FEED SELF WITHOUT SPILLING FOOD OR WATER ALL OVER SELF); PT HAS RFA SKIN TEAR THAT WAS REDRESSED (SEE PHOTO) WITH ACTIVE BLEEDING WHEN OLD DRESSING WAS REMOVED SLOWLY BY THIS NURSE; PTS DAUGHTER WAS AT SIDE BEGINNING OF SHIFT AND VERY SUPPORTIVE AND VOICED THAT SHE LIVES WITH HER MOTHER; PT CURRENTLY RECEIVING LOVENOX INJECTIONS AFTER HEPARIN WAS DISCONTINUED ON 07/16/19; BED ALARM APPLIED, BED LOW POSITION WITH CALL LIGHT AT SIDE.
--- NOTE | 2019-07-17 14:14 | NUR ---
PATIENT TO DISCHARGE TO [facility]. IV REMOVED AND DRESSING TO SKIN TEAR CHANGED PRIOR TO DC. FAMILY PRESENT. PATIENT TO BE TAKEN BY TRANSPORT.
[2019-07-17] MEDS ORDERED: ATOR80 PO (14:56)
[2019-07-17] MEDS ORDERED: ASPI325 PO (14:56)
[2019-07-17] MEDS ORDERED: CREON DR 12,001 EACH PO ×2 (15:00→15:03)
[2019-07-17] MEDS ORDERED: SENN187 PO (15:04)
[2019-07-17] MEDS ORDERED: METOPROLOL SUCC25 MG PO (15:04)
[2019-07-17] MEDS ORDERED: Zegerid 20 MG1 EAC1 PO (15:05)
== END 2019-07-17 14:36 | DRG 65 ==
LOC: ER 17:30 → MEDS 20:50 → ENPENDDIS 07-17 11:31 → MEDS 07-17 14:36
PROVIDERS: Emergency Medicine; Nurse Practitioner Acute Care; Physician Assistant; ADMIT Hospitalist
DX: I63.412 Cerebral infarction due to embolism of left middle cerebral artery (principal); G81.91 Hemiplegia, unspecified affecting right dominant side; C16.9 Malignant neoplasm of stomach, unspecified; I10 Essential (primary) hypertension; K21.9 Gastro-esophageal reflux disease without esophagitis; Z87.891 Personal history of nicotine dependence; R13.10 Dysphagia, unspecified; I95.1 Orthostatic hypotension; Z66 Do not resuscitate; R47.1 Dysarthria and anarthria; Z79.82 Long term (current) use of aspirin; Z79.02 Long term (current) use of antithrombotics/antiplatelets
CPT/HCPCS: 36415; 70450; 70496; 70498; 71045; 80048; 80053; 80061; 81003; 82140; 82947; 83605; 85025; 85610; 85730; 87040; 87804; 92610; 93005; 93010; 96360; 96360-59; 96361; 97110; 97162; 97166; 97530; 97535; 99284-25; 99285-25; A9270-GY; J1644; J1650; J7030; P9612; Q9967

== ENCOUNTER 2019-09-14 13:11 | Emergency (ER) | payer MEDICARE, OTHER ==
[~2019-09-14] VITALS: Ht 160 cm; Wt 47.2 kg
[~2019-09-14 13:11] MED LIST changes: +ASPI325 PO; +ATOR80 PO; +CREON DR 12,001 EACH PO; +DEXA4 PO; +METOPROLOL SUCC25 MG PO; +SENN187 PO; +Zegerid 20 MG1 EAC1 PO
== END 2019-09-14 15:26 | disposition home or self-care (01) ==
LOC: ER 13:11
DX: R53.1 Weakness (principal); R55 Syncope and collapse; Z88.1 Allergy status to other antibiotic agents; Z88.8 Allergy status to other drugs, medicaments and biological substances; Z79.899 Other long term (current) drug therapy; Z79.82 Long term (current) use of aspirin; Z87.891 Personal history of nicotine dependence
CPT/HCPCS: 99283; J1642

== ENCOUNTER 2019-09-21 22:15 | Inpatient (IN) | payer MEDICARE, OTHER ==
[~2019-09-21] VITALS: Ht 160 cm; Wt 46.2 kg
[2019-09-21] MEDS ORDERED: AMLO5 PO ×2 (22:45→22:50)
[2019-09-21] MEDS ORDERED: Aspir 8181 MG PO (22:46)
[2019-09-21] MEDS ORDERED: CLOP75 PO (22:48)
[2019-09-21] MEDS ORDERED: METO10 PO (22:48)
[2019-09-21 23:08] LABS: BASOPHILS ABSOLUTE AUTO 0.05 K/mm3 (0.00-0.23); BASOPHILS PERCENT AUTO 0 % (0-2); EOSINOPHILS ABSOLUTE AUTO 0.54 K/mm3 (0.00-0.68); EOSINOPHILS PERCENT AUTO 4 % (0-6); Hematocrit 38.1 % (33.0-51.0); Hemoglobin 11.6 g/dL (11.5-16.0); IMMATURE GRAN ABSOLUTE AUTO 0.09 K/mm3 (0.00-0.10); IMMATURE GRAN PERCENT AUTO 1 % (0-1); LYMPHOCYTES PERCENT AUTO 8 % (21-46); MONOCYTES PERCENT AUTO 3 % (4-13); Mean Corpuscular HGB 28.3 pg (26.0-34.0); Mean Corpuscular HGB Conc 30.4 g/dL (31.5-36.5); Mean Corpuscular Volume 93 fL (80-100); Mean Platelet Volume 10.2 fL (9.1-12.4); NEUTROPHILS ABSOLUTE AUTO 10.86 K/mm3 (1.96-9.15); NEUTROPHILS PERCENT AUTO 83 % (41-73); Platelet Count 180 K/mm3 (150-400); RDW Coefficient Variation 14.9 % (11.7-14.2); RDW Standard Deviation 51.8 fL (35.1-46.3); White Blood Cell Count 13.04 K/mm3 (4.00-11.30)
[2019-09-21 23:24] LABS: Alanine Aminotransfer (ALT/SGP 12 U/L (12-78); Albumin, Blood 2.7 g/dL (3.4-5.0); Albumin/Globulin Ratio 0.8 (0.8-1.8); Alk Phos 101 U/L (50-136); Anion Gap 13 mmol/L (6-16); Aspartate Aminotrans (AST/SGOT 27 U/L (12-37); Bilirubin, Total 0.2 mg/dL (0.1-1.0); Blood Urea Nitrogen 23 mg/dL (8-24); Bun/Creatinine Ratio 11.2 (12.0-20.0); CO2, Blood 16 mmol/L (21-32); Calcium, Blood 8.7 mg/dL (8.5-10.1); Chloride, Blood 111 mmol/L (98-108); Creatinine, Blood 2.06 mg/dL (0.40-1.00); Globulin, Blood 3.2 g/dL (2.2-4.0); Glomerular Filtration Rate 25 (60-); Glucose, Blood 107 mg/dL (70-99); Potassium, Blood 4.3 mmol/L (3.5-5.5); Sodium, Blood 140 mmol/L (136-145); Total Protein, Blood 5.9 g/dL (6.4-8.2); Troponin I <0.015 ng/mL (0.000-0.040)
--- NOTE | 2019-09-22 02:50 | NUR ---
ADMIT NOTE RECEIVED HANDOFF FROM ER NURSE BURAK. PT TRANSFERED TO FLOOR VIA GURNEY. DAUGHTERS AT BEDSIDE. PT AND FAMILY ORIENTED TO UNIT. CALL BUTTON WITHIN REACH. IV FLUIDS STARTED ORDERED. PT CURRENTLY REFUSING HAGER, SHE IS ABLE TO USE BSC WITH ASSISTANCE.
--- NOTE | 2019-09-22 04:59 | NUR ---
SHIFT SUMMARY ADMITTED FOR RT SIDE PYELONEPHRITIS/SEPSIS/ANEMIA/HYPERGLYCEMIA. FULL CODE. NEW DIAGNOSIS DM2 (A1C 10.6). POSITIVE BLOOD CULTURES. PT HAS BEEN TACHYCARDIC AND HYPERTENSIVE SINCE ADMIT, ANIMAL NURSE INFORMED. A&O X4, RA, INDEPENDENT IN ROOM, ADA DIET. IV FLUID HELD DUE TO HTN, ANIMAL NURSE ORDER. STOOL SAMPLE NEGATIVE FOR GUAIAC. HX: MENOMETRORRHAGIA (OUTPT TX RECOMMENDED), MORBID OBESITY. IRON SUPPLEMENTATION TO CORRECT DEFICIENCY.
--- NOTE | 2019-09-22 05:07 | NUR ---
SHIFT SUMMARY ADMITTED THIS SHIFT FOR KHLOE. DNR CODE. PT STATES SHE HAS NO APPETITE AND HAS NOT BEEN DRINKING ENOUGH FLUIDS. LR IS INFUSING. WE ARE USING A BSC DUE TO SYNCOPE, WEAKNESS, N/V. WBC IS ELEVATED, WATCHING LABS. LIVES WITH DAUGHTER. RUNS SLIGHTLY TACHYCARDIC. REGULAR DIET. HX: STOMACH CA (CHEMO TX), HTN, GERD, CVA, TIA, ORTHOSTATIC HYPOTENSION, DEHYDRATION. HAGER CATHETER UNABLE TO BE PLACED THUS FAR, PT REFUSES. STATES LAST HOSPITALIZATION SHE HAD TO BE "KNOCKED OUT".
[2019-09-22 05:46] LABS: Source, Urine Voided
[2019-09-22 05:53] LABS: Bilirubin, Urine Neg (Neg); Blood, Urine 1+ (Neg); Glucose Qualitative, Urine Neg (Neg); Ketones, Urine 3+ (Neg); Leukocyte Esterase, Urine 3+ (Neg); Nitrite, Urine Neg (Neg); Protein, Urine 1+ (Neg); Urobilinogen, Urine NORM (Normal)
[2019-09-22 05:58] LABS: Calcium, Blood 8.2 mg/dL (8.5-10.1); Creatinine, Blood 1.75 mg/dL (0.40-1.00); Potassium, Blood 4.4 mmol/L (3.5-5.5)
--- NOTE | 2019-09-22 06:01 | NUR ---
Room 341 Celia Hudson has verbal permission to student nurse Rodri Bhakta to provide care on 09/22/2019 from [phone]
[2019-09-22 06:16] LABS: Appearance, Urine Clear (Clear); Color, Urine Yellow (P-Yellow)
[2019-09-22 06:19] LABS: Bacteria Few /hpf; Mucus Light (0-Heavy); Red Blood Cells, Urine 0-2 /hpf (0-2); Squamous Epithelial Cells Rare /hpf (Few); White Blood Cells, Urine 25-50 /hpf (0-5)
--- NOTE | 2019-09-22 14:28 | NUR ---
Patient gave permission for this student to care for her on 09/22/19 at 1415.
--- NOTE | 2019-09-22 16:30 | NUR ---
SHIFT SUMMARY PT IS A/O X 4 AND HAS NO C/O PAIN. SHE IS VERY FATIGUED AND SLEEPS MOST OF THE DAY. PT IS A 1-2 ASSIST WITH TOILETING TO THE BS. MEDIPORT WAS ACCESSED PER DR CHAVIRA AND LR IS RUNNING ORDERED. PT HAS LITTLE TO NO APPETITE AND FAMILY REPORTS THIS HAS BEEN GOING ON FOR A WHILE. DAUGHTER WAS AT THE BEDSIDE THIS MORNING AND REPORTS THAT PT LIVES WITH HER SISTER AND SHE STAYS WITH THEM A FEW DAYS OUT OF THE WEEK. PT IS ABLE TO MAKE HER NEEDS KNOWN AND CALLS FOR HELP WHEN NEEDED. SHE IS RESTING IN BED. CALL LIGHT IS IN REACH.
--- NOTE | 2019-09-23 02:53 | NUR ---
IV FLUIDS DC'D IV FLUIDS DC'D ORDERED.
--- NOTE | 2019-09-23 05:03 | NUR ---
SHIFT SUMMARY ADMITTED FOR KHLOE/SEIZURE LIKE ACTIVITY. DNR CODE. PT HAD ELEVATED BP THIS SHIFT, THE NIGHT HOSPITALIST QUICKLY CAUGHT THIS AND DISCONTINUED IV FLUID INFUSION. PT HAS A MEDIPORT, IV ANTIBIOTICS ARE SCHEDULED. SHE DOES HAVE A UTI. PT LIVES W/DAUGHTER. PT SEES DR HILL OUTPT FOR GASTRIC CANCER. SOFT BITE SIZE DIET IS ORDERED, RA, A&O X4, 1 ASSIST TO BSC DUE TO SEVERE WEAKNESS. HX: 85% OF INTESTINES REMOVED, GASTRIC CANCER, CVA, GERD, TIA'S, HTN, TRANSIENT HYPOTENSION, SEIZURE-LIKE ACTIVITY. MONITORING LABS.
[2019-09-23 05:33] LABS: BASOPHILS ABSOLUTE AUTO 0.03 K/mm3 (0.00-0.23); BASOPHILS PERCENT AUTO 1 % (0-2); EOSINOPHILS ABSOLUTE AUTO 0.68 K/mm3 (0.00-0.68); EOSINOPHILS PERCENT AUTO 17 % (0-6); Hematocrit 29.5 % (33.0-51.0); Hemoglobin 9.1 g/dL (11.5-16.0); IMMATURE GRAN ABSOLUTE AUTO 0.01 K/mm3 (0.00-0.10); IMMATURE GRAN PERCENT AUTO 0 % (0-1); LYMPHOCYTES PERCENT AUTO 22 % (21-46); MONOCYTES ABSOLUTE AUTO 0.35 K/mm3 (0.16-1.47); MONOCYTES PERCENT AUTO 9 % (4-13); Mean Corpuscular HGB 28.5 pg (26.0-34.0); Mean Corpuscular HGB Conc 30.8 g/dL (31.5-36.5); Mean Corpuscular Volume 93 fL (80-100); Mean Platelet Volume 10.2 fL (9.1-12.4); NEUTROPHILS ABSOLUTE AUTO 2.16 K/mm3 (1.96-9.15); NEUTROPHILS PERCENT AUTO 52 % (41-73); Platelet Count 237 K/mm3 (150-400); RDW Standard Deviation 51.2 fL (35.1-46.3); Red Blood Cell Count 3.19 M/mm3 (3.80-5.20); White Blood Cell Count 4.13 K/mm3 (4.00-11.30)
[2019-09-23 06:01] LABS: Albumin, Blood 2.3 g/dL (3.4-5.0); Albumin/Globulin Ratio 0.8 (0.8-1.8); Bilirubin, Total 0.4 mg/dL (0.1-1.0); Bun/Creatinine Ratio 8.8 (12.0-20.0); Calcium, Blood 8.4 mg/dL (8.5-10.1); Creatinine, Blood 1.36 mg/dL (0.40-1.00); Globulin, Blood 2.8 g/dL (2.2-4.0); Potassium, Blood 4.1 mmol/L (3.5-5.5); Total Protein, Blood 5.1 g/dL (6.4-8.2)
--- NOTE | 2019-09-23 15:03 | NUR ---
Pt. is lying in bed resting offered prayers
--- NOTE | 2019-09-23 16:15 | NUR ---
SHIFT SUMMARY PT A&O X4, PT HAS BEEN VERY TIRED THIS SHIFT AND SLEEPING THE MAJORITY OF THIS SHIFT. PT NEEDS ASSISTANCE TO THE COMADE AND BACK TO BED BECAUSE OF WEAKNESS. PT HAS MEDIPORT IN PLACE. PT HAS DECLINED ANY FOOD OR DRINK DURING THIS SHIFT. PT DECLINED PAIN DURING THE SHIFT. PALLIATIVE CARE CONSULT IN PLACE. PT HAS CALL LIGHT WITH IN REACH. WILL REPORT [address].
--- NOTE | 2019-09-24 05:17 | NUR ---
SHIFT SUMMARY ADMITTED KHLOE/SEIZURE- LIKE ACTIVITY. DNR CODE. PLAN IS HOPEFUL FOR DC TODAY. MEDIPORT IS ACCESSED. SEES ONCOLOGIST DR HILL FOR GASTRIC CANCER. SHE IS ON SOFT BITE SIZE DIET, A&O X4, RA. SHE IS WEAK AND HAS HAD LITTLE APPETITE. HX: 85% OF HER INTESTINES HAVE BEEN REMOVED, CVA, TIA'S, GERD, HTN, TRANSIENT HYPOTENSION, RECEIVING CHEMO TX'S.
[2019-09-24 05:54] LABS: Bun/Creatinine Ratio 7.6 (12.0-20.0); Calcium, Blood 8.7 mg/dL (8.5-10.1); Creatinine, Blood 1.19 mg/dL (0.40-1.00); Potassium, Blood 4.2 mmol/L (3.5-5.5); Prolactin 14.8 ng/mL (2.74-19.64); Thyroid Stimulating Hormone 4.25 uIU/mL (0.360-4.800)
[2019-09-24] MEDS ORDERED: DULO30 PO (14:14)
[2019-09-24] MEDS ORDERED: ONDA4ODT MM (14:15)
--- NOTE | 2019-09-24 14:45 | NUR ---
Pt. is doing fine the nurse in the room attending to her needs
--- NOTE | 2019-09-24 17:07 | NUR ---
SHIFT SUMMARY PT A&O X4, PT AMBULATES INDEPENTLY IN ROOM ON 2L OF N/C, PT TIRED VERY EASILY WITH MINIMAL ACTIVITY. PT EATS MINIMAL MEALS AND IS OFFERED ENSURE WITH MEALS. PT JEFFERSON PAIN OR NAUSEA DURING THIS SHIFT.
--- NOTE | 2019-09-24 17:38 | NUR ---
SHIFT SUMMARY PT A&O X4, PT TRANSFERS TO COMADE WITH SBA AND MINIMAL ASSISTANCE. PT HAD D/C HOME ORDERED CANCLED FOR TODAY. PT WILL REVALUATE HOME NEEDS TOMORROW. PT WAS MEDICATED X1 FOR PAIN IN HER RIGHT ARM. PT HAD EMESIS X1 AFTER BREAKFAT AND HAS DECREASED APPETITE. PT HAD MEDIPORT DEACCESSED FOR D/C AND THEN STAYED AN ADDITIONAL NIGHT. ORDER PLACED FOR NO ACCESS PER DR. CHAVIRA. PT HAS CALL LIGHT WITH IN REACH. WILL REPORT TO ONCOMING SHIFT.
--- NOTE | 2019-09-25 00:29 | NUR ---
BEGINNING SHIFT SUMMARY ASSUMED CARE OF PT AT 1900. PT IS A/O X4, DENIES N/T IN EXTREMITIES. HEART SOUNDS REGULAR, LUNG SOUNDS DIMINISHED, DENIES SOB/CP AT THIS TIME. PT IS VERY WEAK AND NEEDS HELP TO THE BSC. FAMILY CAME IN TO HELP PT EAT SOUP, PT HAS NOT HAD MUCH OF AN APPETITE, PT NEEDS ASSISTANCE TO EAT. PT IS CURRENTLY SLEEPING , CALL LIGHT IN REACH, BED IN LOWEST POSTION, WILL CONTINUE TO MONITOR.
--- NOTE | 2019-09-25 04:09 | NUR ---
END SHIFT SUMMARY NO ACUTE CHANGES NOTED T/O THE NIGHT. PT SLEPT T/O THE NIGHT EXCEPT TO USE THE BSC. CALL LIGHT IN REACH, BED IN LOWEST POSITION, WILL CONTINUE TO MONITOR UNTIL DAYSHIFT NURSE ARRIVES.
[2019-09-25 06:05] LABS: Bun/Creatinine Ratio 7.7 (12.0-20.0); Calcium, Blood 8.6 mg/dL (8.5-10.1); Creatinine, Blood 1.17 mg/dL (0.40-1.00); Potassium, Blood 4.2 mmol/L (3.5-5.5)
--- NOTE | 2019-09-25 14:05 | NUR ---
PT PAIN PT COMPLAINING OF 8/10 R SIDED PAIN WHERE SHE FELL AT HOME. TYLENOL GIVEN PREVIOUSLY. DR. CURTIS NOTIFIED. ORDERED NORCO TO TRY. WILL CONTINUE TO MONITOR.
--- NOTE | 2019-09-25 15:24 | NUR ---
PT HAS BEEN SLEEPING SINCE LAST PAIN ASSESSMENT. UNABLE TO GIVEN NORCO. WILL REASSESS PAIN WHEN PT WAKES UP.
--- NOTE | 2019-09-25 18:20 | NUR ---
SHIFT SUMMARY PT FEELING MUCH BETTER THIS AFTERNOON. PT MEDICATED ONCE WITH NORCO, PT PAIN CUT IN HALF. PT REFUSED BREAKFAST & LUNCH. PT REFUSED PHYSICAL THERAPY. PT AGREED TO GETTING UP INTO CHAIR ONCE THIS SHIFT. PT CURRENTLY SITTING UP IN BED EATING DINNER. DAUGHTER AT BEDSIDE. NO CHANGES IN ASSESSMENT AT THIS TIME. VSS. WILL CONTINUE TO MONITOR UNTIL TURNOVER IS COMPLETE.
[2019-09-26] MEDS ORDERED: Megestrol Aceta20 MG PO (13:06)
[2019-09-26] MEDS ORDERED: METO25ER PO (13:08)
[2019-09-26] MEDS ORDERED: AMLO5 PO (13:08)
--- NOTE | 2019-09-26 15:37 | NUR ---
PATIENT DISCHARGED HOME WITH DAUGHTER. ALL iv LINES DISCONTINUED. MEDICATIONS FAXED TO [facility]
== END 2019-09-26 14:58 | disposition home health service (06) | DRG 683 ==
LOC: ER 22:15 → MEDS 22:16
PROVIDERS: Emergency Medicine; Student in an Organized Health Care Education/Training Program; ADMIT Internal Medicine
DX: N17.9 Acute kidney failure, unspecified (principal); C16.9 Malignant neoplasm of stomach, unspecified; Z68.1 Body mass index [BMI] 19.9 or less, adult; I95.9 Hypotension, unspecified; F32.9 Major depressive disorder, single episode, unspecified; R56.9 Unspecified convulsions; E86.0 Dehydration; I12.9 Hypertensive chronic kidney disease with stage 1 through stage 4 chronic kidney disease, or unspecified chronic kidney disease; N18.9 Chronic kidney disease, unspecified; R62.7 Adult failure to thrive; Z74.01 Bed confinement status; Z86.73 Personal history of transient ischemic attack (TIA), and cerebral infarction without residual deficits; K21.9 Gastro-esophageal reflux disease without esophagitis; M06.9 Rheumatoid arthritis, unspecified; Z90.49 Acquired absence of other specified parts of digestive tract; Z87.891 Personal history of nicotine dependence
CPT/HCPCS: 36415; 76770; 80048; 80053; 81001; 83605; 84145; 84146; 84443; 84484; 85025; 87086; 93005; 93010; 96360; 96361; 96365; 96366; 96372; 97110; 97116; 97162; 97530; 99285-25; A9270; A9270-GY; G0378; J0696; J1642; J1644; J2405; J7030; J7120

== ENCOUNTER 2019-12-06 08:15 | Emergency (ER) | payer MEDICARE, OTHER ==
[~2019-12-06] VITALS: Ht 160 cm; Wt 43.1 kg
[~2019-12-06 08:15] MED LIST changes: +Aspir 8181 MG PO; +CLOP75 PO; +DULO30 PO; +METO10 PO; +Megestrol Aceta20 MG PO; +ONDA4ODT MM
[2019-12-06 09:05] LABS: BASOPHILS ABSOLUTE AUTO 0.04 K/mm3 (0.00-0.23); BASOPHILS PERCENT AUTO 1 % (0-2); EOSINOPHILS ABSOLUTE AUTO 0.55 K/mm3 (0.00-0.68); EOSINOPHILS PERCENT AUTO 6 % (0-6); Hematocrit 39.7 % (33.0-51.0); Hemoglobin 12.2 g/dL (11.5-16.0); IMMATURE GRAN ABSOLUTE AUTO 0.02 K/mm3 (0.00-0.10); IMMATURE GRAN PERCENT AUTO 0 % (0-1); LYMPHOCYTES ABSOLUTE AUTO 1.03 K/mm3 (0.84-5.20); LYMPHOCYTES PERCENT AUTO 12 % (21-46); MONOCYTES ABSOLUTE AUTO 0.41 K/mm3 (0.16-1.47); MONOCYTES PERCENT AUTO 5 % (4-13); Mean Corpuscular HGB 27.8 pg (26.0-34.0); Mean Corpuscular HGB Conc 30.7 g/dL (31.5-36.5); Mean Corpuscular Volume 90 fL (80-100); Mean Platelet Volume 9.8 fL (9.1-12.4); NEUTROPHILS ABSOLUTE AUTO 6.82 K/mm3 (1.96-9.15); NEUTROPHILS PERCENT AUTO 77 % (41-73); Platelet Count 365 K/mm3 (150-400); RDW Standard Deviation 46.5 fL (35.1-46.3); Red Blood Cell Count 4.39 M/mm3 (3.80-5.20); White Blood Cell Count 8.87 K/mm3 (4.00-11.30)
[2019-12-06 09:26] LABS: Alanine Aminotransfer (ALT/SGP 118 U/L (12-78); Albumin, Blood 2.9 g/dL (3.4-5.0); Albumin/Globulin Ratio 0.6 (0.8-1.8); Anion Gap 16 mmol/L (6-16); Aspartate Aminotrans (AST/SGOT 170 U/L (12-37); Bilirubin, Total 0.8 mg/dL (0.1-1.0); Blood Urea Nitrogen 19 mg/dL (8-24); Bun/Creatinine Ratio 18.8 (12.0-20.0); CO2, Blood 16 mmol/L (21-32); Calcium, Blood 9.7 mg/dL (8.5-10.1); Chloride, Blood 105 mmol/L (98-108); Creatinine, Blood 1.01 mg/dL (0.40-1.00); Globulin, Blood 4.9 g/dL (2.2-4.0); Glomerular Filtration Rate 57 (60-); Glucose, Blood 91 mg/dL (70-99); Potassium, Blood 3.9 mmol/L (3.5-5.5); Sodium, Blood 137 mmol/L (136-145); Total Protein, Blood 7.8 g/dL (6.4-8.2)
== END 2019-12-06 10:08 | disposition home or self-care (01) ==
LOC: ER 08:15
PROVIDERS: Emergency Medicine
DX: R11.2 Nausea with vomiting, unspecified (principal); E86.0 Dehydration; R79.89 Other specified abnormal findings of blood chemistry; C16.9 Malignant neoplasm of stomach, unspecified; I10 Essential (primary) hypertension; K21.9 Gastro-esophageal reflux disease without esophagitis; Z88.1 Allergy status to other antibiotic agents; Z88.8 Allergy status to other drugs, medicaments and biological substances; Z79.899 Other long term (current) drug therapy; Z79.02 Long term (current) use of antithrombotics/antiplatelets; Z86.73 Personal history of transient ischemic attack (TIA), and cerebral infarction without residual deficits; Z87.891 Personal history of nicotine dependence
CPT/HCPCS: 80053; 85025; 96360; 99284-25; J7030

== ENCOUNTER 2019-12-26 13:38 | Emergency (ER) | payer MEDICARE, OTHER ==
[~2019-12-26] VITALS: Ht 160 cm; Wt 40.8 kg
[2019-12-26 14:33] LABS: BASOPHILS ABSOLUTE AUTO 0.03 K/mm3 (0.00-0.23); BASOPHILS PERCENT AUTO 1 % (0-2); EOSINOPHILS ABSOLUTE AUTO 0.45 K/mm3 (0.00-0.68); EOSINOPHILS PERCENT AUTO 13 % (0-6); Hemoglobin 10.8 g/dL (11.5-16.0); IMMATURE GRAN PERCENT AUTO 0 % (0-1); LYMPHOCYTES ABSOLUTE AUTO 0.92 K/mm3 (0.84-5.20); LYMPHOCYTES PERCENT AUTO 26 % (21-46); MONOCYTES ABSOLUTE AUTO 0.24 K/mm3 (0.16-1.47); MONOCYTES PERCENT AUTO 7 % (4-13); Mean Corpuscular HGB 27.6 pg (26.0-34.0); Mean Corpuscular HGB Conc 30.9 g/dL (31.5-36.5); Mean Corpuscular Volume 90 fL (80-100); Mean Platelet Volume 10.1 fL (9.1-12.4); NEUTROPHILS ABSOLUTE AUTO 1.87 K/mm3 (1.96-9.15); NEUTROPHILS PERCENT AUTO 53 % (41-73); Platelet Count 276 K/mm3 (150-400); RDW Coefficient Variation 14.2 % (11.7-14.2); RDW Standard Deviation 46.5 fL (35.1-46.3); Red Blood Cell Count 3.91 M/mm3 (3.80-5.20); White Blood Cell Count 3.51 K/mm3 (4.00-11.30)
[2019-12-26 14:58] LABS: Albumin, Blood 2.6 g/dL (3.4-5.0); Albumin/Globulin Ratio 0.6 (0.8-1.8); Bilirubin, Total 0.5 mg/dL (0.1-1.0); Bun/Creatinine Ratio 14.7 (12.0-20.0); Calcium, Blood 8.8 mg/dL (8.5-10.1); Creatinine, Blood 1.09 mg/dL (0.40-1.00); Potassium, Blood 3.6 mmol/L (3.5-5.5); Total Protein, Blood 6.6 g/dL (6.4-8.2)
== END 2019-12-26 18:44 | disposition home or self-care (01) ==
LOC: ER 13:38
PROVIDERS: Emergency Medicine
DX: R29.898 Other symptoms and signs involving the musculoskeletal system (principal); I10 Essential (primary) hypertension; K21.9 Gastro-esophageal reflux disease without esophagitis; Z86.73 Personal history of transient ischemic attack (TIA), and cerebral infarction without residual deficits; Z87.891 Personal history of nicotine dependence; Z88.1 Allergy status to other antibiotic agents; Z88.8 Allergy status to other drugs, medicaments and biological substances; Z79.899 Other long term (current) drug therapy
CPT/HCPCS: 70450; 70496; 70498; 80053; 85025; 93005; 93010; 99285-25; J1642; Q9967

== ENCOUNTER 2020-07-14 10:53 | Emergency (ER) | payer MEDICARE, OTHER ==
[~2020-07-14] VITALS: Ht 160 cm; Wt 54.4 kg
[2020-07-14 11:59] LABS: BASOPHILS ABSOLUTE AUTO 0.05 K/mm3 (0.00-0.23); BASOPHILS PERCENT AUTO 1 % (0-2); EOSINOPHILS ABSOLUTE AUTO 0.13 K/mm3 (0.00-0.68); EOSINOPHILS PERCENT AUTO 2 % (0-6); Hematocrit 49.2 % (33.0-51.0); Hemoglobin 15.1 g/dL (11.5-16.0); IMMATURE GRAN ABSOLUTE AUTO 0.03 K/mm3 (0.00-0.10); IMMATURE GRAN PERCENT AUTO 0 % (0-1); LYMPHOCYTES ABSOLUTE AUTO 0.98 K/mm3 (0.84-5.20); LYMPHOCYTES PERCENT AUTO 14 % (21-46); MONOCYTES ABSOLUTE AUTO 0.75 K/mm3 (0.16-1.47); MONOCYTES PERCENT AUTO 10 % (4-13); Mean Corpuscular HGB 29.4 pg (26.0-34.0); Mean Corpuscular HGB Conc 30.7 g/dL (31.5-36.5); Mean Corpuscular Volume 96 fL (80-100); NEUTROPHILS ABSOLUTE AUTO 5.29 K/mm3 (1.96-9.15); NEUTROPHILS PERCENT AUTO 73 % (41-73); Platelet Count 252 K/mm3 (150-400); RDW Coefficient Variation 13.9 % (11.7-14.2); RDW Standard Deviation 49.5 fL (35.1-46.3); Red Blood Cell Count 5.14 M/mm3 (3.80-5.20); White Blood Cell Count 7.23 K/mm3 (4.00-11.30)
[2020-07-14 12:20] LABS: Albumin, Blood 2.7 g/dL (3.4-5.0); Albumin/Globulin Ratio 0.7 (0.8-1.8); Bilirubin, Total 0.6 mg/dL (0.1-1.0); Bun/Creatinine Ratio 7.5 (12.0-20.0); Calcium, Blood 9.3 mg/dL (8.5-10.1); Creatinine, Blood 1.46 mg/dL (0.40-1.00); Globulin, Blood 3.7 g/dL (2.2-4.0); Potassium, Blood 3.2 mmol/L (3.5-5.5); Total Protein, Blood 6.4 g/dL (6.4-8.2); Troponin I 0.018 ng/mL (0.000-0.040)
[2020-07-14 12:21] LABS: Magnesium, Blood 2.2 mg/dL (1.6-2.4); Phosphorus, Blood 4.2 mg/dL (2.5-4.9)
[2020-07-14 12:32] LABS: Source, Urine Clean Catch
[2020-07-14 13:05] LABS: Appearance, Urine Cloudy (Clear); Blood, Urine 2+ (Neg); Color, Urine Yellow (P-Yellow); Glucose Qualitative, Urine Neg (Neg); Ketones, Urine 1+ (Neg); Leukocyte Esterase, Urine 3+ (Neg); Nitrite, Urine Pos (Neg); Protein, Urine 3+ (Neg); Urobilinogen, Urine NORM (Normal)
[2020-07-14 13:16] LABS: Bilirubin, Urine 1+ (Neg)
[2020-07-14 13:18] LABS: White Blood Cells, Urine TNTC /hpf (0-5)
[2020-07-14 13:19] LABS: Bacteria Many /hpf; Squamous Epithelial Cells Few /hpf (Few); Transitional Epithelial Cells Few /hpf (0-Rare)
[2020-07-14 14:11] LABS: Influenza A, PCR Negative (NEGATIVE); Influenza B, PCR Negative (NEGATIVE); Resp Syncytial Virus, PCR Negative (NEGATIVE); SARS-Cov-2 (COVID-19) PCR, MMC Negative (NEGATIVE)
[2020-07-14] MEDS ORDERED: Bactrim Ds Tab1 EACH PO (14:35)
== END 2020-07-14 15:50 | disposition home or self-care (01) ==
LOC: ER 10:53
PROVIDERS: Physician Assistant
DX: N39.0 Urinary tract infection, site not specified (principal); E87.6 Hypokalemia; I10 Essential (primary) hypertension; K21.9 Gastro-esophageal reflux disease without esophagitis; Z20.828 Contact with and (suspected) exposure to other viral communicable diseases; Z86.73 Personal history of transient ischemic attack (TIA), and cerebral infarction without residual deficits; Z79.02 Long term (current) use of antithrombotics/antiplatelets; Z79.899 Other long term (current) drug therapy; Z87.891 Personal history of nicotine dependence
CPT/HCPCS: 0241U; 36415; 80053; 81001; 83735; 84100; 84484; 85025; 87077; 87086; 87186; 93005; 93010; 96361; 96365; 96366; 99285-25; J2543; J7030

== ENCOUNTER 2020-07-21 18:53 | Inpatient (IN) | payer MEDICARE, OTHER ==
[~2020-07-21] VITALS: Ht 160 cm; Wt 52.2 kg
[~2020-07-21 18:53] MED LIST changes: +Bactrim Ds Tab1 EACH PO
[2020-07-21 19:38] LABS: BASOPHILS ABSOLUTE AUTO 0.03 K/mm3 (0.00-0.23); BASOPHILS PERCENT AUTO 1 % (0-2); EOSINOPHILS ABSOLUTE AUTO 0.18 K/mm3 (0.00-0.68); EOSINOPHILS PERCENT AUTO 5 % (0-6); Hematocrit 43.4 % (33.0-51.0); Hemoglobin 13.5 g/dL (11.5-16.0); IMMATURE GRAN ABSOLUTE AUTO 0.01 K/mm3 (0.00-0.10); IMMATURE GRAN PERCENT AUTO 0 % (0-1); LYMPHOCYTES ABSOLUTE AUTO 0.77 K/mm3 (0.84-5.20); LYMPHOCYTES PERCENT AUTO 21 % (21-46); MONOCYTES ABSOLUTE AUTO 0.46 K/mm3 (0.16-1.47); MONOCYTES PERCENT AUTO 12 % (4-13); Mean Corpuscular HGB 29.2 pg (26.0-34.0); Mean Corpuscular HGB Conc 31.1 g/dL (31.5-36.5); Mean Corpuscular Volume 94 fL (80-100); Mean Platelet Volume 9.7 fL (9.1-12.4); NEUTROPHILS ABSOLUTE AUTO 2.29 K/mm3 (1.96-9.15); NEUTROPHILS PERCENT AUTO 61 % (41-73); Platelet Count 322 K/mm3 (150-400); RDW Coefficient Variation 13.8 % (11.7-14.2); RDW Standard Deviation 47.9 fL (35.1-46.3); Red Blood Cell Count 4.62 M/mm3 (3.80-5.20); White Blood Cell Count 3.74 K/mm3 (4.00-11.30)
[2020-07-21 19:56] LABS: Albumin, Blood 2.6 g/dL (3.4-5.0); Albumin/Globulin Ratio 0.7 (0.8-1.8); Bilirubin, Total 0.6 mg/dL (0.1-1.0); Calcium, Blood 9.3 mg/dL (8.5-10.1); Creatinine, Blood 1.16 mg/dL (0.40-1.00); Globulin, Blood 3.5 g/dL (2.2-4.0); Magnesium, Blood 2.1 mg/dL (1.6-2.4); Potassium, Blood 3.4 mmol/L (3.5-5.5); Total Protein, Blood 6.1 g/dL (6.4-8.2)
[2020-07-21 20:54] LABS: Source, Urine Clean Catch
[2020-07-21 21:01] LABS: Blood, Urine 1+ (Neg); Glucose Qualitative, Urine Neg (Neg); Ketones, Urine 2+ (Neg); Leukocyte Esterase, Urine 2+ (Neg); Nitrite, Urine Neg (Neg); Protein, Urine 2+ (Neg); Specific Gravity, Urine 1.025 (1.003-1.022); Urobilinogen, Urine NORM (Normal)
[2020-07-21 21:04] LABS: Appearance, Urine Hazy (Clear); Bilirubin, Urine 1+ (Neg); Color, Urine Yellow (P-Yellow)
[2020-07-21 21:09] LABS: Amorphous Light (0-Heavy); Bacteria Mod /hpf; Mucus Light (0-Heavy); Red Blood Cells, Urine 0-2 /hpf (0-2); Squamous Epithelial Cells Few /hpf (Few); White Blood Cells, Urine 25-50 /hpf (0-5)
[2020-07-21] MEDS ORDERED: PANTOPRAZOLE SO40 M2 PO (21:09)
--- NOTE | 2020-07-21 23:41 | NUR ---
70 YR OLD FEMALE ADMITTED TO FLOOR FROM THE ED WITH DX OF ACUTE ENCEPHALOPATHY AND UTI. RECENT FALLS AND "HIT HEAD" PER REPORT. ALERT AND ORIENTED. INSTRUCTED BIOFUELS PRODUCTION MANAGER LIGHT USE, INSTRUCTED NO OUT OF BED WITHOUT STAFF AT BEDSIDE. VOICED UNDERSTANDING AND AGREEMENT. CALL LIGHT I REACH
--- NOTE | 2020-07-22 04:32 | NUR ---
SHIFT SUMMARY PT WAS ADMITTED EARLIER IN THE SHIFT WITH UTI AND ACUTE ENCEPHALOPATHY. NEURO CHECKS DONE, NO NOTED DEFICEITS. A/O X 4. IVF OF NS INFUSING AND HAS RECEIVED ANTIBIOTIC - SEE MAR FOR DETAILS. HAS BEEN RESTING QUIETLY WITH FEW INTERRUPTIONS MOST OF THE SHIFT. CALL LIGHT IN REACH.
[2020-07-22 04:39] LABS: BASOPHILS ABSOLUTE AUTO 0.03 K/mm3 (0.00-0.23); BASOPHILS PERCENT AUTO 1 % (0-2); EOSINOPHILS ABSOLUTE AUTO 0.16 K/mm3 (0.00-0.68); EOSINOPHILS PERCENT AUTO 5 % (0-6); Hematocrit 38.6 % (33.0-51.0); IMMATURE GRAN ABSOLUTE AUTO 0.01 K/mm3 (0.00-0.10); IMMATURE GRAN PERCENT AUTO 0 % (0-1); LYMPHOCYTES ABSOLUTE AUTO 0.79 K/mm3 (0.84-5.20); LYMPHOCYTES PERCENT AUTO 24 % (21-46); MONOCYTES ABSOLUTE AUTO 0.47 K/mm3 (0.16-1.47); MONOCYTES PERCENT AUTO 14 % (4-13); Mean Corpuscular HGB 29.2 pg (26.0-34.0); Mean Corpuscular HGB Conc 31.1 g/dL (31.5-36.5); Mean Corpuscular Volume 94 fL (80-100); Mean Platelet Volume 9.8 fL (9.1-12.4); NEUTROPHILS ABSOLUTE AUTO 1.88 K/mm3 (1.96-9.15); NEUTROPHILS PERCENT AUTO 56 % (41-73); Platelet Count 286 K/mm3 (150-400); RDW Coefficient Variation 13.7 % (11.7-14.2); RDW Standard Deviation 47.3 fL (35.1-46.3); Red Blood Cell Count 4.11 M/mm3 (3.80-5.20); White Blood Cell Count 3.34 K/mm3 (4.00-11.30)
[2020-07-22 05:05] LABS: Albumin, Blood 2.2 g/dL (3.4-5.0); Albumin/Globulin Ratio 0.7 (0.8-1.8); Bilirubin, Total 0.6 mg/dL (0.1-1.0); Bun/Creatinine Ratio 5.8 (12.0-20.0); Calcium, Blood 8.9 mg/dL (8.5-10.1); Creatinine, Blood 1.2 mg/dL (0.40-1.00); Globulin, Blood 3.2 g/dL (2.2-4.0); Potassium, Blood 4.2 mmol/L (3.5-5.5); Total Protein, Blood 5.4 g/dL (6.4-8.2)
--- NOTE | 2020-07-22 16:01 | NUR ---
Patient is pleasant and cooperative with staff. Alert and oriented x4. Calls appropriately for staff assist. NS rate changed to 150ml/hr from 75. Vitals are stable. Denies pain and discomfort. Exhibits excessive tremors. No acute changes to report on at this time. will continue to monitor and provide care as needed.
--- NOTE | 2020-07-23 03:38 | NUR ---
SURGEON/PRESIDENT SUMMARY PT A&OX4, ABLE TO MAKE NEEDS KNOWN. PLEASANT AND COOPERATIVE TO CARE. NO C/O PAIN. DENIES CP OR SOB, RESP EVEN AND UNLABORED IN RA. PT MEDICATED FOR NAUSEA X1, PT REPORTS RELIEF. PT CONT ON IV ABX ORDERED, NO ASE NOTED. PT IS 1 PERSON ASSIST TO [facility]. PT CALM AND RESTED IN BED T/O SHIFT. CALL LIGHT WITHIN REACH.
[2020-07-23 04:34] LABS: BASOPHILS ABSOLUTE AUTO 0.02 K/mm3 (0.00-0.23); BASOPHILS PERCENT AUTO 1 % (0-2); EOSINOPHILS ABSOLUTE AUTO 0.13 K/mm3 (0.00-0.68); EOSINOPHILS PERCENT AUTO 3 % (0-6); Hemoglobin 12.6 g/dL (11.5-16.0); IMMATURE GRAN ABSOLUTE AUTO 0.01 K/mm3 (0.00-0.10); IMMATURE GRAN PERCENT AUTO 0 % (0-1); LYMPHOCYTES ABSOLUTE AUTO 0.88 K/mm3 (0.84-5.20); LYMPHOCYTES PERCENT AUTO 23 % (21-46); MONOCYTES ABSOLUTE AUTO 0.69 K/mm3 (0.16-1.47); MONOCYTES PERCENT AUTO 18 % (4-13); Mean Corpuscular HGB 29.9 pg (26.0-34.0); Mean Corpuscular HGB Conc 31.5 g/dL (31.5-36.5); Mean Corpuscular Volume 95 fL (80-100); Mean Platelet Volume 9.6 fL (9.1-12.4); NEUTROPHILS ABSOLUTE AUTO 2.05 K/mm3 (1.96-9.15); NEUTROPHILS PERCENT AUTO 54 % (41-73); Platelet Count 259 K/mm3 (150-400); RDW Coefficient Variation 13.7 % (11.7-14.2); RDW Standard Deviation 47.5 fL (35.1-46.3); Red Blood Cell Count 4.22 M/mm3 (3.80-5.20); White Blood Cell Count 3.78 K/mm3 (4.00-11.30)
[2020-07-23 04:56] LABS: Albumin/Globulin Ratio 0.6 (0.8-1.8); Bilirubin, Total 0.8 mg/dL (0.1-1.0); Bun/Creatinine Ratio 4.2 (12.0-20.0); Calcium, Blood 8.5 mg/dL (8.5-10.1); Creatinine, Blood 1.2 mg/dL (0.40-1.00); Globulin, Blood 3.1 g/dL (2.2-4.0); Potassium, Blood 3.4 mmol/L (3.5-5.5); Total Protein, Blood 5.1 g/dL (6.4-8.2)
--- NOTE | 2020-07-23 15:08 | NUR ---
PATIENT IS ALERT AND ORIENTED HOWEVER FORGETFUL. STATES SHE HAS VISUAL HALLUCINATIONS; THIS WAS REPORTED TO DR ANDERSON. [place] [facility] [place] GET RIGHT BACK INTO BED. PLEASANT AND COOPERATIVE WITH STAFF. I HAVE SOME CONCERNS REGARDING HER ABILITIES TO SWALLOW SO I SPOKE WITH THE MD AND A SPEECH EVAL HAS BEEN ORDERED. PATIENT CONTINUES ON PO ABX WITHOUT S/SX OF ADVERSE REACTIONS NOTED OR REPORTED. VITALS HAVE BEEN STABLE. NO OTHER ACUTE CHANGES NOTED OR REPORTED AT THIS TIME. WILL CONTINUE TO MONITOR AND PROVIDE CARE NEEDED. CALL LIGHT WITHIN REACH.
--- NOTE | 2020-07-24 03:48 | NUR ---
ASSIGNED RN, ELIEZER, @ LUNCH. ELEVATED BP OF 169/107 REPORTED BY DIRECTOR OF ANALYTICAL DEVELOPMENT. REVIEWED CHART FOR PREVIOUS BP, PROVIDER NOTES, AND MEDICATIONS. IT APPEARS PT TYPICALLY RUNS THIS HIGH @ TIMES. NO PRN MEDICATION, PT TAKES NORCAS AND METOPROLOL DAILY. ELIEZER WAS INFORMED UPON RETURN FROM LUNCH.
[2020-07-24 04:18] LABS: BASOPHILS ABSOLUTE AUTO 0.02 K/mm3 (0.00-0.23); BASOPHILS PERCENT AUTO 1 % (0-2); EOSINOPHILS ABSOLUTE AUTO 0.15 K/mm3 (0.00-0.68); EOSINOPHILS PERCENT AUTO 3 % (0-6); Hematocrit 41.5 % (33.0-51.0); Hemoglobin 13.2 g/dL (11.5-16.0); IMMATURE GRAN ABSOLUTE AUTO 0.02 K/mm3 (0.00-0.10); IMMATURE GRAN PERCENT AUTO 1 % (0-1); LYMPHOCYTES ABSOLUTE AUTO 0.91 K/mm3 (0.84-5.20); LYMPHOCYTES PERCENT AUTO 21 % (21-46); MONOCYTES ABSOLUTE AUTO 0.47 K/mm3 (0.16-1.47); MONOCYTES PERCENT AUTO 11 % (4-13); Mean Corpuscular HGB 30.1 pg (26.0-34.0); Mean Corpuscular HGB Conc 31.8 g/dL (31.5-36.5); Mean Corpuscular Volume 95 fL (80-100); Mean Platelet Volume 9.5 fL (9.1-12.4); NEUTROPHILS ABSOLUTE AUTO 2.86 K/mm3 (1.96-9.15); NEUTROPHILS PERCENT AUTO 65 % (41-73); Platelet Count 293 K/mm3 (150-400); RDW Coefficient Variation 13.6 % (11.7-14.2); RDW Standard Deviation 47.6 fL (35.1-46.3); Red Blood Cell Count 4.39 M/mm3 (3.80-5.20); White Blood Cell Count 4.43 K/mm3 (4.00-11.30)
[2020-07-24 04:41] LABS: Albumin, Blood 2.2 g/dL (3.4-5.0); Albumin/Globulin Ratio 0.6 (0.8-1.8); Bilirubin, Total 0.5 mg/dL (0.1-1.0); Bun/Creatinine Ratio 4.4 (12.0-20.0); Creatinine, Blood 1.13 mg/dL (0.40-1.00); Globulin, Blood 3.6 g/dL (2.2-4.0); Potassium, Blood 3.8 mmol/L (3.5-5.5); Total Protein, Blood 5.8 g/dL (6.4-8.2)
--- NOTE | 2020-07-24 05:29 | NUR ---
POULTRY DEBEAKER SUMMARY PT A&OX4, ABLE TO MAKE NEEDS KNOWN. PLEASANT AND COOPERATIVE TO CARE. PT MEDICATED FOR PAIN AND NAUSEA PER EMAR. PT REPORTED BOTH TX HAS BEEN EFFECTIVE. NO C/O CP OR SOB. RESP EVEN AND UNLABORED IN RA. PT CALM AND RESTED T/O SHIFT. PT 1 PERSON ASSIST TO BSC. BED AT LOWEST POSITION. CALL LIGHT WITHIN REACH.
--- NOTE | 2020-07-24 14:43 | NUR ---
PATIENT WAS EXTREMELY HYPERTENSIVE THIS MORNING AT 201/116. SCHEDULED MORNING MEDICATIONS ADMINISTERED EARLY TO ASSIST IN BRINGING DOWN THE BP. IT TOOK A FULL TWO HOURS BUT PATIENTS BP DID COME DOWN TO 116 SBP. ALL OTHER VITALS HAVE BEEN STABLE AND WNL. PATIENT STILL AWAITING A SPEECH EVAL; ST MUST BE GONE FOR THE WEEKEND. PATIENT DENIES PAIN AND DISCOMFORT. DID COMPLAIN OF NAUSEA AT THIS START OF SHIFT AND WAS GIVEN IV ZOFRAN WITH EFFECTIVENESS. PATIENT CONTINUES TO HAVE VERY MINIMAL APPETITE. ONLY TRANSFERS TO/FROM [facility] [place], OTHERWISE REMAINS IN BED. SHE REFUSES TO REMAIN UPRIGHT IN CHAIR. TEMORS PERSIST, PATIENT STATES SHE IS UNAWARE OF THE CAUSE. DAUGHTER IN AT PATIENT'S BEDSIDE AT THIS TIME. DANIELA JAMESDESIREE COORDINATOR, IN ROOM TALKING WITH PATIENT AND DAUGHTER AT THIS TIME. BP JUST CHECKED AGAIN AND IS WNL. CALL LIGHT WITHIN REACH. WILL CONTINUE TO MONITOR AND PROVIDE CARE NEEDED.
[2020-07-24 22:33] LABS: Source, Urine Clean Catch
[2020-07-24 22:38] LABS: Bilirubin, Urine Neg (Neg); Blood, Urine Neg (Neg); Glucose Qualitative, Urine Neg (Neg); Ketones, Urine 4+ (Neg); Leukocyte Esterase, Urine Neg (Neg); Nitrite, Urine Neg (Neg); Protein, Urine 1+ (Neg); Urobilinogen, Urine NORM (Normal)
--- NOTE | 2020-07-24 22:45 | NUR ---
PT TRANSFERRED TO ROOM 342, REPORTED TO ARIANA PULIDO. NO ISSUES NOTED TO PT DURING THE TRANSFER.
[2020-07-24 22:55] LABS: Appearance, Urine Clear (Clear); Color, Urine Yellow (P-Yellow)
[2020-07-25 05:09] LABS: BASOPHILS ABSOLUTE AUTO 0.02 K/mm3 (0.00-0.23); BASOPHILS PERCENT AUTO 1 % (0-2); EOSINOPHILS ABSOLUTE AUTO 0.16 K/mm3 (0.00-0.68); EOSINOPHILS PERCENT AUTO 4 % (0-6); Hematocrit 38.7 % (33.0-51.0); Hemoglobin 12.4 g/dL (11.5-16.0); IMMATURE GRAN ABSOLUTE AUTO 0.02 K/mm3 (0.00-0.10); IMMATURE GRAN PERCENT AUTO 1 % (0-1); LYMPHOCYTES ABSOLUTE AUTO 0.84 K/mm3 (0.84-5.20); LYMPHOCYTES PERCENT AUTO 22 % (21-46); MONOCYTES ABSOLUTE AUTO 0.41 K/mm3 (0.16-1.47); MONOCYTES PERCENT AUTO 11 % (4-13); Mean Corpuscular HGB 29.7 pg (26.0-34.0); Mean Corpuscular Volume 93 fL (80-100); NEUTROPHILS ABSOLUTE AUTO 2.31 K/mm3 (1.96-9.15); NEUTROPHILS PERCENT AUTO 62 % (41-73); Platelet Count 289 K/mm3 (150-400); RDW Coefficient Variation 13.8 % (11.7-14.2); Red Blood Cell Count 4.17 M/mm3 (3.80-5.20); White Blood Cell Count 3.76 K/mm3 (4.00-11.30)
[2020-07-25 05:23] LABS: Albumin, Blood 2.2 g/dL (3.4-5.0); Albumin/Globulin Ratio 0.6 (0.8-1.8); Bilirubin, Total 0.5 mg/dL (0.1-1.0); Bun/Creatinine Ratio 3.9 (12.0-20.0); Calcium, Blood 8.8 mg/dL (8.5-10.1); Creatinine, Blood 1.27 mg/dL (0.40-1.00); Globulin, Blood 3.4 g/dL (2.2-4.0); Potassium, Blood 3.5 mmol/L (3.5-5.5); Total Protein, Blood 5.6 g/dL (6.4-8.2)
--- NOTE | 2020-07-25 06:07 | NUR ---
SUMMARY PT HAS BEEN SLEEPING W/O COMPLAINT FOR MOST OF SHIFT. PT HRT RATE INCREASES WHEN GETTING UP TO VOID. PT HAS NO NOTED SOB W/ EXERTION. PT CURRENTLY SLEEPING AND BREATHING EASY. CALL LIGHT IN REACH AND BED ALARM ON.
[2020-07-25 15:02] LABS: Influenza A, PCR Negative (NEGATIVE); Influenza B, PCR Negative (NEGATIVE); Resp Syncytial Virus, PCR Negative (NEGATIVE); SARS-Cov-2 (COVID-19) PCR, MMC Negative (NEGATIVE)
[2020-07-25] MEDS ORDERED: Acetaminophen650 M1 PO (16:14)
[2020-07-25] MEDS ORDERED: ENOX40I SC (16:16)
[2020-07-25] MEDS ORDERED: LEVAQUIN750 MG PO (16:21)
[2020-07-25] MEDS ORDERED: VISBIOME PROBI1 EACH PO (16:21)
--- NOTE | 2020-07-25 17:06 | NUR ---
PT TRANSFERED TO [facility] TO DAY VIA TRANSPORT BUS. REPORT GIVEN PRIOR TO DISCHARGE. PACKET SENT WITH PIPE CLEANER FOR PT. ALL PERSONAL BELONINGS WERE TAKEN BY FAMILY MEMBER TO BE DROPPED OFF WITH PT. PT WAS DOING WELL TODAY AO AND COOPERATIVE OF CARE. PT WAS TREATED FOR NAUSEA PER EMAR BEFORE AM MEDS. PT WORKED WITH PHYSICAL THERAPY AND IS STILL SHAKY WHEN STOOD OR SITTING AT BEDSIDE. PT TAKEN OUT IN WHEEL CHAIR @ 1700.
== END 2020-07-25 17:00 | disposition home health service (06) | DRG 689 ==
LOC: ER 18:53 → MEDS 18:54 → ENPENDDIS 07-25 13:45 → EDPENDDIS 07-25 13:45 → MEDS 07-25 17:00
PROVIDERS: Family Medicine; Physician Assistant; ADMIT Internal Medicine
DX: N39.0 Urinary tract infection, site not specified (principal); G92 Toxic encephalopathy; J18.9 Pneumonia, unspecified organism; Z92.21 Personal history of antineoplastic chemotherapy; Z20.828 Contact with and (suspected) exposure to other viral communicable diseases; Z85.028 Personal history of other malignant neoplasm of stomach; Z66 Do not resuscitate; Z87.891 Personal history of nicotine dependence; Z86.73 Personal history of transient ischemic attack (TIA), and cerebral infarction without residual deficits; R62.7 Adult failure to thrive; K21.9 Gastro-esophageal reflux disease without esophagitis; F32.9 Major depressive disorder, single episode, unspecified; I10 Essential (primary) hypertension; R63.0 Anorexia; Z68.20 Body mass index [BMI] 20.0-20.9, adult; E78.5 Hyperlipidemia, unspecified; E86.0 Dehydration; E87.6 Hypokalemia; E88.09 Other disorders of plasma-protein metabolism, not elsewhere classified
CPT/HCPCS: 0241U; 36415; 70450; 71045; 80053; 81001; 83605; 83735; 84145; 85025; 87086; 92610; 93005; 93010; 96365; 96372; 96375; 96376; 97110; 97162; 97165; 97530; 97535; 99285-25; A9270; A9270-GY; G0378; J1650; J1956; J2405; J2543; J7030